=== PATIENT | female | born 1955 | race Caucasian/White ===

== ENCOUNTER → 2018-10-30 08:50 | Outpatient (CLI) | payer BC, SELFPAY ==
--- NOTE | 2018-10-30 08:56 | MM_ITS ---
MM Dig screening mamm BI w/CAD CAD Screening COMPARISON: Digital mammograms with CAD 01/19/2016 and 12/03/2013 INDICATION: There is no personal or family history of breast cancer TECHNIQUE: Standard CC and MLO images were obtained. R2 CAD reviewed. FINDINGS: Mild diffuse fibroglandular densities are seen throughout both breasts. There is faint vascular calcification left breast, there are couple benign-appearing microcalcifications right breast. There is no suspicious lesion in either breast and there are no suspicious microcalcifications. IMPRESSION: Fibrofatty parenchyma with no suspicious lesion seen BI-RADS Category: 2 Benign Finding(s) RECOMMENDED FOLLOW-UP: 1YR - 1 YEAR FOLLOW-UP (A letter has been sent to the patient regarding results of the study.)
== END ==
PROVIDERS: PCP Nurse Practitioner Family; Visit Provider Nurse Practitioner Family
DX: Z12.31 Encounter for screening mammogram for malignant neoplasm of breast (principal)
CPT/HCPCS: 77067

== ENCOUNTER → 2020-04-12 08:42 | Outpatient (CLI) | payer BC, SELFPAY ==
--- NOTE | 2020-04-12 08:42 | MM_ITS ---
PROCEDURE: MM DIG SCREENING MAMM BI W/CAD Digital Breast Tomosynthesis Included CLINICAL INDICATION: screening xmg There is no personal or family history of breast cancer. COMPARISON: MG DMSB DIG MAMM-SCREEN SEBAS from 12/03/2013 MG DMSB DIG MAMM-SCREEN SEBAS from 01/19/2016 MG SCBI MM Dig screening mamm BI w/CAD from 10/30/2018 TECHNIQUE: Standard CC and MLO images and 3D Tomosynthesis was obtained. R2 CAD reviewed. FINDINGS: [id number] fibroglandular densities are seen throughout both breasts. There is faint arterial calcification in each breast. There is stable asymmetric glandular elements upper-outer quadrant right breast. There is no suspicious lesion in either breast and no suspicious microcalcifications. IMPRESSION: Fibrofatty parenchyma with no suspicious lesions seen BI-RAD Category: 2 Benign Finding(s) FOLLOW-UP: 1YR 1 Year Follow-up (A letter has been sent to the patient regarding results of the study.) Dictated by: Dr. Angel Corbin MD 04/13/2020 10:58 Dr. Angel Corbin MD in [place] 04/13/2020 10:58
== END ==
PROVIDERS: PCP Nurse Practitioner Family; Visit Provider Nurse Practitioner Obstetrics & Gynecology
DX: Z12.31 Encounter for screening mammogram for malignant neoplasm of breast (principal)
CPT/HCPCS: 77063; 77067

== ENCOUNTER → 2021-04-16 10:38 | Outpatient (CLI) | payer BC, SELFPAY ==
--- NOTE | 2021-04-16 10:41 | MM_ITS ---
PROCEDURE: MM DIG SCREENING MAMM BI W/CAD Digital Breast Tomosynthesis Included CLINICAL INDICATION: SCREENING COMPARISON: MG DMSB DIG MAMM-SCREEN SEBAS from 01/19/2016 MG SCBI MM Dig screening mamm BI w/CAD from 10/30/2018 MG MM DIG SCREENING MAMM BI W/CAD from 04/12/2020 TECHNIQUE: Standard CC and MLO images and 3D Tomosynthesis was obtained. R2 CAD reviewed. FINDINGS: Average fibroglandular tissue. No malignant appearing mass or malignant-appearing microcalcification. There are bilateral benign-appearing calcifications.No suspicious appearing mass, malignant-appearing microcalcification, architectural distortion, or skin thickening. No change with no evidence of malignancy IMPRESSION: Benign findings. No change with no evidence of malignancy. BI-RAD Category: 2 Benign Finding FOLLOW-UP: 1 YR 1 Year Follow-up (A letter has been sent to the patient regarding results of the study.) Dictated by: Bryce Meléndez MD 04/20/2021 09:41 Bryce Meléndez MD in [place] 04/20/2021 09:41
== END ==
PROVIDERS: PCP Nurse Practitioner Family; Visit Provider Nurse Practitioner Family
DX: Z12.31 Encounter for screening mammogram for malignant neoplasm of breast (principal)
CPT/HCPCS: 77063; 77067

== ENCOUNTER → 2021-07-10 09:41 | Outpatient (CLI) | payer BC, SELFPAY | PROVIDERS: Visit Provider Surgery | DX: Z01.812 Encounter for preprocedural laboratory examination (principal); Z11.52 Encounter for screening for COVID-19; Z12.11 Encounter for screening for malignant neoplasm of colon | CPT/HCPCS: C9803; U0003; U0005 ==

== ENCOUNTER 2021-07-12 06:16 | Day surgery (SDC) | payer BC, SELFPAY ==
[2021-07-09 11:27] VITALS: BMI 36.0
[2021-07-12 06:30] VITALS: BP 140/85; PULSE 68; RESP 18; TEMP 36.2; O2SAT 98
[2021-07-12 07:22] VITALS: O2SAT 97
[2021-07-12 08:20] VITALS: BP 113/76; PULSE 79; RESP 16; TEMP 36.1; O2SAT 94
--- NOTE | 2021-07-12 08:20 | HMH.SCOPE ---
- Procedure: Date: 07/12/21 Patient Date of :: 1955 Procedure Performed:: Colonoscopy with polypectomy Indications:: History of colon polyps Performing Provider:: Sonny Rodriguez MD Referring Provider:: . Sedation:: Monitored anesthesia care Procedure:: After informed consent was obtained the patient was taken to the endoscopy suite. Sedation ensued after the patient was transferred to the left lateral decubitus position. Pulse, blood pressure, and oxygen saturation were monitored throughout the procedure. Digital rectal exam revealed no significant abnormality. The colonoscope was placed in position. The entire colon was evaluated. The colonoscope was carefully removed and the patient was transferred to recovery in stable condition. Please see findings and specimens below for detail. Findings:: Bowel preparation fair Severe spasticity lack of relaxation (worse in sigmoid) Multiple complex polyps (see specimens) Specimens:: Distal transverse colon polyp (snare) Complex lobulated 2 cm polyp at 55 cm and 3 adjacent polyps (snare and tattoo) 4 polyps at 45 cm Pedunculated complex polyp at 20 cm (snare) Recommendations:: Timing of repeat colonoscopy is pending pathology but likely be between 3-6 months secondary to size/nature/number of polyps with particular attention to tattoo site. Complications:: No immediate Estimated blood obtained (mL): 1
[2021-07-12 08:30] VITALS: BP 109/69; PULSE 73; RESP 18; TEMP 36.1; O2SAT 98
[2021-07-12 08:40] VITALS: BP 115/75; PULSE 58; RESP 18; TEMP 36.1; O2SAT 99
--- NOTE | 2021-07-12 08:54 | HMH.ANESCL ---
[facility] Anesthesia Checklist - Structural Data Admitted From: Home Planned Operative Procedure/s: colonoscopy Consent for Planned Operative Procedure(s) Verified: Yes - Airway Assessment C-Spine Mobility Assessed: Yes TMJ Mobility Assessed: Yes Dentition: Edentulous - Neurological Assessment Level of Consciousness: Awake, Alert, Appropriate - Anesthesia Plan Anesthesia Risk discussed: Yes Anesthesia Plan: Verified ASA Class: III Anesthesia Type: MAC [facility] History I have reviewed the patient's past medical history: Yes Medical History: Reports:: Diabetes Mellitus Type 2, Hypertension Denies:: Cancer, Diabetes Mellitus Type 1, Internal Pacemaker, MRSA, Seizures *Have you ever received a pneumonia vaccine?: No *Have you received a flu vaccine this season?: Yes Anesthesia experience/problems:: none Laterality Cases: Right: Cataract, Bilateral: Total Knee Replacement Other Surgeries: Yes: Tubal Ligation. No: Pacemaker Amputation: No Fractures: No - *Social History Last grade of school completed: High school graduate Smoking Status: Never smoker Alcohol Intake: never Substance Use Type: denies use *Occupational Status:: employed Housing: house Household Members: spouse *Travel in the last 8 weeks: None Family Hx:: Cancer, Diabetes, Hypertension, Hyperlipidemia, Asthma
[2021-07-12 08:59] VITALS: BP 129/79; PULSE 64; RESP 18; TEMP 36.1; O2SAT 99
[2022-05-23 10:54] LABS: POC Glucose,Bedside 125 (70-110)
== END 2021-07-12 08:59 | disposition home or self-care (01) ==
LOC: OUTP 06:17
PROVIDERS: PCP Nurse Practitioner Family; Visit Provider Surgery
PROC: 0DJD8ZZ Inspection of Lower Intestinal Tract, Via Natural or Artificial Opening Endoscopic (ICD-10-PCS; CPT 45385; principal; 2021-07-12 07:30)
DX: Z12.11 Encounter for screening for malignant neoplasm of colon (principal); Z86.010 Personal history of colon polyps; E66.9 Obesity, unspecified; Z68.35 Body mass index [BMI] 35.0-35.9, adult; E11.9 Type 2 diabetes mellitus without complications; I10 Essential (primary) hypertension; Z88.2 Allergy status to sulfonamides; K62.89 Other specified diseases of anus and rectum; K63.5 Polyp of colon
CPT/HCPCS: 45385; 45381; 82962

== ENCOUNTER → 2021-09-21 10:21 | Outpatient (CLI) | payer MEDICARE, SELFPAY ==
[2021-09-22 15:06] LABS: Covid-19 Nasal PCR Sendout Lex POSITIVE
== END ==
PROVIDERS: Visit Provider Nurse Practitioner
DX: U07.1 COVID-19 (principal)
CPT/HCPCS: C9803; U0004; U0005

== ENCOUNTER → 2021-10-06 09:51 | Outpatient (CLI) | payer MEDICARE, SELFPAY | PROVIDERS: PCP Nurse Practitioner Family; Visit Provider Surgery | DX: Z01.812 Encounter for preprocedural laboratory examination (principal); U07.1 COVID-19; D12.6 Benign neoplasm of colon, unspecified | CPT/HCPCS: C9803; U0003; U0005 ==

== ENCOUNTER 2021-11-13 11:17 | Day surgery (SDC) | payer MEDICARE, SELFPAY ==
[2021-10-05 13:47] VITALS: BMI 37.8
[2021-11-12 10:55] VITALS: BMI 37.8
[2021-11-13 11:32] VITALS: BP 152/68; PULSE 63; RESP 18; TEMP 36.3; O2SAT 97
[2021-11-13 12:11] VITALS: O2SAT 97
[2021-11-13 12:46] VITALS: BP 114/68; PULSE 65; RESP 16; TEMP 36.3; O2SAT 96
--- NOTE | 2021-11-13 12:46 | HMH.SCOPE ---
- Procedure: Date: 11/13/21 Patient Date of :: 1955 Procedure Performed:: Colonoscopy with polypectomy by means other than snare Indications:: History of large complex polyps to include transverse colon polyp requiring piecemeal resection with tattoo placement. Performing Provider:: Sonny Rodriguez MD Referring Provider:: . Sedation:: Monitored anesthesia care Procedure:: After informed consent was obtained the patient was taken to the endoscopy suite. Sedation ensued after the patient was transferred to the left lateral decubitus position. Pulse, blood pressure, and oxygen saturation were monitored throughout the procedure. Digital rectal exam revealed no significant abnormality. The colonoscope was placed in position. The entire colon was evaluated. The colonoscope was carefully removed and the patient was transferred to recovery in stable condition. Please see findings and specimens below for detail. Findings:: Bowel preparation relatively fair Unchanged sigmoid diverticulosis Tattoo site appeared essentially normal Small polyp approximately 10 cm distal to tattoo site (transverse colon) Specimens:: Polyp distal to tattoo site (transverse colon) -cold biopsy forceps Recommendations:: Timing of repeat colonoscopy is pending pathology but will likely be around 2-3 years secondary to history of large complex polyps and persistent polyps on subsequent evaluation. Complications:: No immediate Estimated blood obtained (mL): 1
--- NOTE | 2021-11-13 12:47 | HMH.ANESCL ---
[facility] Anesthesia Checklist - Structural Data Admitted From: Home Planned Operative Procedure/s: colonoscopy Consent for Planned Operative Procedure(s) Verified: Yes - Airway Assessment C-Spine Mobility Assessed: Yes TMJ Mobility Assessed: Yes Dentition: Good Dentition - Neurological Assessment Level of Consciousness: Awake, Alert, Appropriate - Anesthesia Plan Anesthesia Risk discussed: Yes Anesthesia Plan: Verified ASA Class: II Anesthesia Type: MAC [facility] History I have reviewed the patient's past medical history: Yes Medical History: Reports:: Diabetes Mellitus Type 2, Hypertension Denies:: Cancer, Diabetes Mellitus Type 1, Internal Pacemaker, MRSA, Seizures *Have you ever received a pneumonia vaccine?: No *Have you received a flu vaccine this season?: Yes Anesthesia experience/problems:: none Laterality Cases: Bilateral: Carpal Tunnel Release, Total Knee Replacement Other Surgeries: Yes: Colonoscopy, Tubal Ligation. No: Pacemaker Amputation: No Fractures: No - *Social History Last grade of school completed: High school graduate Smoking Status: Never smoker Alcohol Intake: never Substance Use Type: denies use *Occupational Status:: retired Housing: house Household Members: spouse *Travel in the last 8 weeks: None Family Hx:: Diabetes, Kidney Disease
[2021-11-13 12:56] VITALS: BP 106/69; PULSE 54; RESP 18; O2SAT 97
[2021-11-13 13:10] VITALS: BP 124/76; PULSE 53; RESP 16; TEMP 36.3; O2SAT 98
[2022-05-23 10:58] LABS: POC Glucose,Bedside 82 (70-110)
== END 2021-11-13 13:10 | disposition home or self-care (01) ==
LOC: OUTP 11:18
PROVIDERS: PCP Nurse Practitioner Family; Visit Provider Surgery
PROC: 0DJD8ZZ Inspection of Lower Intestinal Tract, Via Natural or Artificial Opening Endoscopic (ICD-10-PCS; principal; 2021-11-13 12:30)
DX: Z12.11 Encounter for screening for malignant neoplasm of colon (principal); Z86.010 Personal history of colon polyps; K57.32 Diverticulitis of large intestine without perforation or abscess without bleeding; K63.5 Polyp of colon; E11.9 Type 2 diabetes mellitus without complications; I10 Essential (primary) hypertension; Z83.3 Family history of diabetes mellitus; Z84.2 Family history of other diseases of the genitourinary system; Z88.2 Allergy status to sulfonamides; Z79.84 Long term (current) use of oral hypoglycemic drugs; Z79.899 Other long term (current) drug therapy
CPT/HCPCS: 45380; 82962; 88305

== ENCOUNTER → 2022-10-03 10:45 | Outpatient (CLI) | payer MEDICARE, SELFPAY ==
--- NOTE | 2022-10-03 10:56 | XR_ITS ---
FINAL REPORT CLINICAL HISTORY: thumb pain FINDINGS: RIGHT THUMB 3 views of the right 1st digit were obtained. There is no acute fracture or dislocation. There are mild hypertrophic changes at the interphalangeal joint. There is mild soft tissue swelling. IMPRESSION: Soft tissue swelling with no acute bony abnormality. Mild hypertrophic changes at the interphalangeal joint. Reviewed, Interpreted and Dictated by Jamar Peters MD Transcribed by Denise Ren Authenticated and [facility]
== END ==
PROVIDERS: PCP Nurse Practitioner Family; Visit Provider Nurse Practitioner Family
DX: M79.644 Pain in right finger(s) (principal); M79.89 Other specified soft tissue disorders
CPT/HCPCS: 73140

== ENCOUNTER → 2022-11-08 10:04 | Outpatient (CLI) | payer MEDICARE, SELFPAY ==
--- NOTE | 2022-11-08 10:10 | MM_ITS ---
PROCEDURE INFORMATION: Exam: MG Bilateral Screening 3D Mammography Exam date and time: 11/08/2022 10:17 AM Age: 67 years old Clinical indication: Screening examination TECHNIQUE: Imaging protocol: Bilateral Screening tomosynthesis and 2D mammography including computer-aided detection (CAD) when performed. COMPARISON: 1. MG MM DIG SCREENING MAMM BI W/CAD 04/16/2021 11:06 AM 2. MG MM DIG SCREENING MAMM BI W/CAD 04/12/2020 8:43 AM FINDINGS: MAMMOGRAPHY: Breast composition: There are scattered areas of fibroglandular density. Mass: None. Architectural distortion: None. Calcifications: No suspicious calcifications. Asymmetric density: None. Skin thickening: None. Axillary adenopathy: None. IMPRESSION: No mammographic evidence of malignancy. Annual screening is recommended unless otherwise clinically indicated. ASSESSMENT: BI-RADS Category 1: Negative
== END ==
PROVIDERS: PCP Nurse Practitioner Family; Visit Provider Nurse Practitioner Family
DX: Z12.31 Encounter for screening mammogram for malignant neoplasm of breast (principal)
CPT/HCPCS: 77063; 77067

== ENCOUNTER 2023-03-15 05:35 | Emergency (ER) | payer MEDICARE, SELFPAY ==
[2023-03-15 05:36] VITALS: BP 159/81; PULSE 89; RESP 18; TEMP 36.9; O2SAT 98; BMI 33.5
--- NOTE | 2023-03-15 05:53 | HMH.EDGENADL ---
Discharge Plan Disposition Patient Disposition: Home, Self-Care Condition: Good Prescriptions Prescriptions: New dexamethasone 6 mg tablet 6 mg PO DAILY Qty: 5 0RF ondansetron HCl 4 mg tablet 4 mg PO Q6H PRN (Reason: nausea and vomiting) Qty: 10 0RF No Action metformin 500 mg tablet extended release 24 hr 500 mg PO DAILY Qty: 30 metoprolol succinate [Toprol XL] 50 mg tablet extended release 24 hr 50 mg PO DAILY clobetasol 0.05 % foam 1 g TOPICAL NEEDED PRN (Reason: psoriasis) triamcinolone acetonide 0.1 % cream 1 applic TOPICAL BID terconazole 45 GM cream 1 appful VAGINAL HS fluconazole 150 MG tablet 150 mg PO DAILY Referrals Follow up/Referrals: Suyapa Gracia APRN [Primary Care Provider] - See instructions Activity Restrictions/Add. Instructions Additional Instructions/Restrictions: Take Tylenol 1000 mg every 6 hours (4 times daily) and ibuprofen 400 mg every 6 hours (4 times daily) as needed with food and water to prevent GI upset and kidney damage. [id number] cetirizine or fexofenadine (Zyrtec or Claritin) will help with congestion. Avoid using decongestants like Sudafed every day as discussed. Steroid once daily for 5 days. Zofran has been sent to the pharmacy for nausea control. If you have any worsening of your condition or any other concerning signs or symptoms, return to the emergency department or your primary care doctor for further evaluation. Clinical Impressions Clinical Impression: COVID-19, Gastroenteritis, Acute viral syndrome Instructions Patient Instructions: DI for Diarrhea and Traveler's Diarrhea -- Adult, DI for Diarrhea and Traveler's Diarrhea -- Child, DI for Nausea -- Adult, DI for Nausea -- Child Discharge ED Provider: Christo Lao General Adult HPI General Chief complaint: Nausea/Vomiting/Diarrhea Stated complaint: SOA, vomiting, positive home covid test Time Seen by Provider: 03/15/23 05:35 Mode of Arrival: Ambulatory Source of Information: Patient Limitations: No Limitations Description of Symptoms (Recalled from ER Triage Doc. by RN): Pt states she was at her mother's last Friday and exposed to COVID. Pt has been vaccinated c/o fever, chills, vomiting, and nausea. History of Present Illness HPI narrative: This is a 67-year-old female with history of hypertension and diabetes presenting with multiple complaints. Patient states she was at a 1 week prior to arrival when she had multiple COVID exposures. She started feeling ill the past couple days, including chills, myalgias, then today, 03/15 in the early a.m. she had 1 episode of nonbloody, nonbilious vomiting. Has also had associated nonbloody diarrhea. Has not tried to tolerate p.o. intake since, given decreased appetite. Denies overt fever, abdominal pain, flank pain, dysuria hematuria, or any other concerns. Tried taking Sudafed, which did not seem to help. Has not noticed anything that makes it better or worse in particular. Related Data Home Medications Medication Instructions Recorded Confirmed metformin 500 mg tablet,extended 500 mg PO DAILY Diabetes #30 tabs 12/11/18 11/12/21 release 24 hr metoprolol succinate 50 mg 50 mg PO DAILY HTN 12/11/18 11/12/21 tablet,extended release 24 hr (Toprol XL) clobetasol 0.05 % topical foam 1 g topical NEEDED PRN psoriasis 05/21/21 11/12/21 triamcinolone acetonide 0.1 % 1 applic topical BID yeast 05/21/21 11/12/21 topical cream fluconazole 150 mg tablet 150 mg PO DAILY yeast 07/09/21 11/12/21 terconazole 0.4 % vaginal cream 1 appful vaginal HS yeast 07/09/21 11/12/21 Previous Rx's Medication Instructions Recorded dexamethasone 6 mg tablet 6 mg PO DAILY #5 tabs 03/15/23 ondansetron HCl 4 mg tablet 4 mg PO Q6H PRN nausea and 03/15/23 vomiting #10 tabs Allergies Allergy/AdvReac Type Severity Reaction Status Date / Time Sulfa (Sulfonamide Allergy Itching Verified 11/12/21 10:55 Anti
[2023-03-15 05:57] LABS: Influenza A, PCR Not Detected (NotDetected); Influenza B, PCR Not Detected (NotDetected)
[2023-03-15 06:18] LABS: Coronavirus 19, PCR Detected (NotDetected)
[2023-03-15 06:41] VITALS: BP 127/68; PULSE 88; RESP 18; TEMP 36.9; O2SAT 98
== END 2023-03-15 06:53 | disposition home or self-care (01) ==
PROVIDERS: Emergency Provider Emergency Medicine; PCP Nurse Practitioner Family
DX: K52.9 Noninfective gastroenteritis and colitis, unspecified (principal); U07.1 COVID-19; I10 Essential (primary) hypertension
CPT/HCPCS: 87636; 99283

== ENCOUNTER 2023-08-29 16:54 | Outpatient (CLI) | payer MEDICARE, SELFPAY ==
[2023-08-29 15:36] LABS: Hemoglobin A1C 6.6 % (4.0-6.0)
[2023-08-29 15:38] LABS: Chloride 102 mmol/L (98-107)
[2023-08-29 15:39] LABS: Sodium 138 mmol/L (136-145)
[2023-08-29 15:41] LABS: Alanine Aminotransferase 22 U/L (12-78); Aspartate Amino Transferase 31 U/L (14-36); Blood Urea Nitrogen 22 mg/dl (7-17); Estimated Glomerular Filt Rate 72 ml/min (>60); GFR (African American) 87 ML/MIN (>60)
[2023-08-29 15:42] LABS: Albumin Level 4.2 g/dl (3.5-5.0); Albumin/Globulin Ratio 1.4 (1.1-1.8); Alkaline Phosphatase 111 U/L (38-126); Bilirubin,Total 0.4 mg/dl (0.2-1.3); Calcium 8.9 mg/dl (8.4-10.2); Carbon Dioxide 30 mmol/L (22.0-30.0); Chol/HDL Ratio 4.2 (1-3.5); Cholesterol 207 mg/dl (140-200); Glucose 109 mg/dl (74-100); HDL Cholesterol 49 mg/dl (40-60); Total Protein,Serum 7.2 g/dl (6.3-8.2); Triglycerides 114 mg/dl (30-150); VLDL Cholesterol 23 mg/dL (0-40)
[2023-08-29 15:53] LABS: Direct LDL Cholesterol 123.52 mg/dL (100-129)
[2023-08-29 16:09] LABS: Microalbumin < 6.000 mg/L (0-16.7)
[2023-08-29 16:13] LABS: Thyroid Stimulating Hormone 2.32 uIU/mL (0.465-4.68)
--- OUTSIDE RECORDS SUMMARY | 2023-08-29 16:57 | XMS_ITS ---
Care Plan - [facility] Created on: August 29, 2023 MichaelKassi rey Eric : 1955 Sex: Female Author Name Unknown Address [address] [place] [address] Phone Organization [facility] Address [address] [place] [address] Phone Care Team Providers Care [employer] Record Clerk Name Role Phone Emerita Gracia Unavailable Unavailable Winston TURNER, Tremaine Unavailable [phone]
--- OUTSIDE RECORDS SUMMARY | 2023-08-29 16:57 | XMS_ITS | Clinical Summary ---
Author Name Unknown Address [address] [place] [address] Phone Organization [facility] , [facility] Address [address] [place] [address] Phone Care Team Providers Care Instructor Programmable Controllers Name Role Phone Emerita Gracia Unavailable Unavailable Winston TURNER, Tremaine Unavailable [phone] Reason for Visit and Chief Complaint The Chief Complaint is: Right swollen thumb Problems Includes: Problems addressed during this encounter and other active Problems All Visits Onset Date Resolved Date Provider Condition S tatus Joint Pain Right Thumb 11/18/2022 Tremaine Montero MD Active Plan of Treatment Fall Risk Assessment: This patient has been identified as a fall risk. Balance/gait along with postural blood pressure, vision and home fall hazards have been assessed. Medications have been reviewed, and recommendations made with regard to contributing factors for future falls. Plan of care: Consideration of vitamin D supplementation along with balance and strength training with consideration for formal physical therapy has been discussed with the patient. - Last Documented On 12/13/2022 9:19AM ; [facility], [facility] Kassi has done very well status post right thumb mass excision 11/29/2022. Sutures were removed today and her incision is healing well. She has full motion of the thumb with no significant pain. I explained that she can use the thumb as tolerated with no activity restriction. We discussed pathology findings consistent with lipoma and I explained that lipoma's can return. She will follow up on an as needed basis. - Last Documented On 12/13/2022 9:19AM ; [facility], [facility] Instructions to patient Lose weight Last Documented On 10:02AM ; [facility] Assessments Includes: Assessments from this encounter No Assessments Recorded Instructions Includes: Instructions from this encounter Instructions to patient Lose weight Last Documented On 10:02AM ; [facility] Medical Equipment - Implanted Devices Includes: Current Devices No Medical Equipment Recorded Medications Includes: Medications discussed during this encounter and other current Medications Current Medications (continue as prescribed) metFORMIN HCl ER 500 MG Oral Tablet Extended Release 24 Hour 11/15/2022 Provider: NETTE GRACIA Diagnosis: Metoprolol Succinate ER 50 M G Oral Tablet Extended Release 24 Hour 11/15/2022 Provider: NETTE GRACIA Diagnosis: Triamcinolone Acetonide 0.1% External Cream 10/21/2022 Provider: NETTE GRACIA Diagnosis: Fluconazole 150 MG Oral Tablet 10/15/2022 Provider: NETTE GRACIA Diagnosis: Amitriptyline HCl 10 MG Oral Tablet 10/03/2022 Provi germaine: NETTE GRACIA Diagnosis: Past Medications on file HYDROcodone-Acetaminophen 5- 325 MG Oral Tablet 11/29/2022 - 12/01/2022 Provider: Tremaine Montero MD Diagnosis: 1 tablet by mouth every 6 hours prn pain Medications Administered Includes: Administered Medications from this encounter No Administered Medications Recorded Vital Signs Includes: Vital Signs from this encounter Vital Name 12/11/2022 10:10A Height (in) 64 Weight (lb) 198 Body Mass Index 34 Body Surface Area 1.9 Note: bb Last Documented On: 12/11/2022 10:10AM ; [facility], [facility] Results Includes: Results discussed during this encounter No Results Recorded For Specified Dates History of Present Illness Includes: History of Present Illness from this encounter JEVON Rodriguez is a 67 year old female. - Allergy list reviewed - Problem list reviewed - Medication list reviewed - Previous history of new onset pain Injury is not work related or an automotive accident - Patient pain level from 1-10: was 0 3 - No previous treatment. 67-year-old female presents for an initial postoperative follow up of right thumb mass excision performed on 11/29/2022. She reports mild tenderness that continues to improve. She has returned to normal daily activities without difficulty. Social History Description Last Updated Tobacco non-user 11/18/2022 Procedures and Surgical History Includes: Procedures from this encounter Procedures Code Diagnosis Performing Provider Service L ocation Service Date use of tobacco assessment performed 1000F Surgical History Last Updated History of total knee arthroplasty 12/11 Medical History Includes: Medical History addressed during this encounter Description Last Updated History of arthritis 12/11/2022 Family History Includes: Family History addressed during this encounter Description Last Updated No significant family history 11/18/2022 Review of Systems Includes: Review of Systems from this encounter Systemic: Not feeling tired, no recent weight loss, and no recent weight gain. Head: No headache and no sinus pain. Eyes: No vision problems, no Cataracts, no Glasses/Contacts, and no Glaucoma. Otolaryngeal: No hearing loss and no tinnitus. Cardiovascular: No chest pain or discomfort, no palpitations, no Hypertension, and no High Cholesterol. Pulmonary: No daytime asthma symptoms and no chronic cough. No wheezing. Gastrointestinal: No heartburn and no abdominal pain. No Indigestion, no Acid Reflux, no Peptic Ulcer, no GI Stomach Bleed, and no Ulcers. Endocrine: No hot flashes, no muscle weakness, no Diabetes, no Hypothyroid, and no Hyperthyroid. Hematologic: No easy bleeding, no tendency for easy bruising, and no Anemia. Musculoskeletal: No Arthritis and no lower back pain. No soft tissue swelling and no localized joint pain. Neurological: No dizziness, no convulsions, and no numbness. Psychological: No anxiety, no emotional lability, no depression, and no insomnia. Not crying for no reason. Skin: No dry skin. No Ulcers, no Scars, and no rash. Allergic and Immunologic: No complaint of seasonal allergic reaction. Reviewed on 12-11-2022 Mental Status Includes: Mental Status from this encounter Description No anxiety Functional Status Includes: Functional Status from this encounter No Functional Status Recorded Physical Exam Includes: Physical Exam from this encounter Allergies Includes: Active Allergies No Known Allergies Encounters Encounter Provider Location Date Check-In Time Check- Out Time Diagnosis Post Op Tremaine Montero MD [facility] 3 10:00AM 10:31AM Insurance Includes: Active Insurance Policies Plan Name Member ID Group # Subscriber Relationship Effect jg Dates 1 - Medicare Part B [facility] [id number] KassiFrank Rodriguez Self 2 - [employer] [facility] [employer] [id number] Kassi Rodriguez Self 08/25/19 23 - Unknown Clinical Notes Includes: Clinical Notes from this encounter * Progress note Date Encounter Last Documented by 12/11/2022 Post Op Last documented on 12/13/2022; 9:19 AM, Tremaine Montero MD; [facility], [facility] Active Problems & Conditions - Joint Pain Right Thumb Chief Complaint The Chief Complaint is: Right swollen thumb. Referred Here Referred by. History of Present Illness Kassi Rodriguez is a 67 year old female. - Allergy list reviewed - Problem list reviewed - Medication list reviewed - Previous history of new onset pain Injury is not work related or an automotive accident - Patient pain level from 1-10: was 0 3 - No previous treatment. 67-year-old female presents for an initial postoperative follow up of right thumb mass excision performed on 11/29/2022. She reports mild tenderness that continues to improve. She has returned to normal daily activities without difficulty. Current Medication - Amitriptyline HCl 10 MG Oral Tablet take as directed 30 days, 0 refills - Fluconazole 150 MG Oral Tablet take as directed 5 days, 0 refills - metFORMIN HCl ER 500 MG Oral Tablet Extended Release 24 Hour take as directed 30 days, 0 refills - Metoprolol Succinate ER 50 MG Oral Tablet Extended Release 24 Hour take as directed 30 days, 0 refills - Triamcinolone Acetonide 0.1% External Cream take as directed 10 days, 0 refills Past Medical/Surgical History Diagnoses: Hypertension. Diabetes mellitus. Arthritis Surgical: - Total knee arthroplasty Social History Not a current smoker. Current diet: No recent change in diet. Caffeine use: No caffeine use. Tobacco use: Tobacco non-user. Alcohol: Not using alcohol. Drug Use: Not using drugs. Habits: Not exercising regularly. Allergies - No Known Allergies Family History No significant family history Review Of Systems Systemic: Not feeling tired, no recent weight loss, and no recent weight gain. Head: No headache and no sinus pain. Eyes: No vision problems, no Cataracts, no Glasses/Contacts, and no Glaucoma. Otolaryngeal: No hearing loss and no tinnitus. Cardiovascular: No chest pain or discomfort, no palpitations, no Hypertension, and no High Cholesterol. Pulmonary: No daytime asthma symptoms and no chronic cough. No wheezing. Gastrointestinal: No heartburn and no abdominal pain. No Indigestion, no Acid Reflux, no Peptic Ulcer, no GI Stomach Bleed, and no Ulcers. Endocrine: No hot flashes, no muscle weakness, no Diabetes, no Hypothyroid, and no Hyperthyroid. Hematologic: No easy bleeding, no tendency for easy bruising, and no Anemia. Musculoskeletal: No Arthritis and no lower back pain. No soft tissue swelling and no localized joint pain. Neurological: No dizziness, no convulsions, and no numbness. Psychological: No anxiety, no emotional lability, no depression, and no insomnia. Not crying for no reason. Skin: No dry skin. No Ulcers, no Scars, and no rash. Allergic and Immunologic: No complaint of seasonal allergic reaction. Reviewed on 12-11-2022 Physical Findings - Vitals taken 12/11/2022 10:10 am bb Height 64 in Weight 198 lbs Body Mass Index 34 kg/m2 Body Surface Area 1.9 m2 Standard Measurements: - Patient was overweight. RIGHT WRIST/HAND: Well healed incision with no sign of infection Able to oppose to the base of the small finger Mild tenderness Sensation intact to light touch distally Previous Tests Imaging: X-Ray: An X-ray was performed. Counseling/Education - Lose weight Plan Fall Risk Assessment: This patient has been identified as a fall risk. Balance/gait along with postural blood pressure, vision and home fall hazards have been assessed. Medications have been reviewed, and recommendations made with regard to contributing factors for future falls. Plan of care: Consideration of vitamin D supplementation along with balance and strength training with consideration for formal physical therapy has been discussed with the patient. Kassi has done very well status post right thumb mass excision 11/29/2022. Sutures were removed today and her incision is healing well. She has full motion of the thumb with no significant pain. I explained that she can use the thumb as tolerated with no activity restriction. We discussed pathology findings consistent with lipoma and I explained that lipoma's can return. She will follow up on an as needed basis. Notes Transcribed by Gregg Quevedo, acting as a scribe for Dr. Montero. This dictation was done with voice recognition software and may contain errors and omissions. Practice Management Use of tobacco assessment performed and patient screened for future fall risk documentation of any fall with injury in past year. Care Team - Emerita Gracia
--- OUTSIDE RECORDS SUMMARY | 2023-08-29 16:57 | XMS_ITS | Clinical Summary ---
Author Name Unknown Address [address] [place] [address] Phone Organization [facility] , [facility] Address [address] [place] [address] Phone Care Team Providers Care Production Machine Tender Name Role Phone Emerita Gracia Unavailable Unavailable Winston TURNER, Tremaine Unavailable [phone] Reason for Visit and Chief Complaint The Chief Complaint is: Right swollen thumb Problems Includes: Problems addressed during this encounter and other active Problems Current Visit Onset Date Resolved Date Provider Manolo kitchen Status Joint Pain Right Thumb 11/18/2022 Tremaine Montero [...] with the patient. - Last Documented On 11/18/2022 4:15PM ; [facility] Kassi has a 3 month old mass at the proximal phalanx of her right thumb. 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 We discussed the risks and benefits of observation vs. operative intervention (excision). She opted to proceed with a mass excision, all of her questions and concerns were addressed. She will return for follow up postoperatively. Surgical vs. nonsurgical treatment options were discussed with the patient. The risks and benefits of each were discussed in detail. With regard to surgery the major risks, to include but not limited to bleeding, infection, nerve and blood vessel injury, tendon injury, residual pain, numbness, stiffness, blood clots and risks related to anesthesia including were discussed. The patient understands the risk of surgery to include but are not limited to infection, possible nerve damage, tendon or vessel injury, scar sensitivity and anesthesia. The patient understands the need for postoperative rehabilitation and therapy. We discussed the possibility of surgical procedure failure, persistent pain, loss of motion, persistent stiffness, persistent weakness, and the possible need for a revision surgery. The patient's questions were answered fully, no guarantees were provided. At the completion of this conversation, the patient elected to proceed with surgery. They will be scheduled at their earliest convenience. - Last Documented On 11/18/2022 4:15PM ; [facility], [facility] Instructions to patient Lose weight Last Documented On 9:26AM ; [facility], [facility] Assessments Includes: Assessments from this encounter No Assessments Recorded Instructions Includes: Instructions from this encounter Instructions to patient Lose weight Last Documented On 9:26AM ; [facility], [facility] Medical Equipment - Implanted Devices Includes: Current [...] Vital Signs from this encounter Vital Name 11/18/2022 09:32A Height (in) 64 Weight (lb) 195 Body Mass Index 33.5 Body Surface Area 1.9 Note: bb Last Documented On: 11/18/2022 9:32AM ; [facility], [facility] Results Includes: Results discussed during this encounter [...] Patient pain level from 1-10: was 0 0 - No previous treatment. 67-year-old female presents for an initial evaluation of a mass over the proximal phalanx of her right thumb that began about 3 months ago. She denies any trauma to the finger. She has not received any formal treatment for this but x-rays were obtained by her PCP about 1 month ago. She reports that the mass is uncomfortable when it is pressed or when using scissors. Social History Description Last Updated Tobacco non-user 11/18/2022 Procedures and Surgical History Includes: Procedures from this encounter Procedures Code Diagnosis Performing Provider Service L ocation Service Date use of tobacco assessment performed 1000F Medical History Includes: Medical History addressed during this encounter No Medical History Recorded Family History Includes: Family History addressed during [...] complaint of seasonal allergic reaction. Reviewed on 11-18-2022 Mental Status Includes: Mental Status from this encounter Description No anxiety Functional Status Includes: Functional Status from this encounter No Functional Status Recorded Physical Exam Includes: Physical Exam from this encounter Allergies Includes: Active Allergies No Known Allergies Encounters Encounter Provider Location Date Check-In Time Check-Out Time Diagnosis Physician Specified Tremaine Montero MD [facility] 11/19/19 9:24AM 10:52AM Insurance Includes: Active Insurance Policies Plan Name Member ID Group # Subscriber Relationship Effect jg Dates 1 - Medicare Part B [facility] [id number] Kassi Rodriguez Self 2 - [facility] [employer] [id number] Kassi Rodriguez Self 08/25/19 23 - Unknown Clinical Notes Includes: Clinical Notes from this encounter * Progress note Date Encounter Last Documented by 11/18/2022 Physician Specified Last pepito salgado on 11/18/2022; 4:15 PM, Tremaine Montero MD; [facility], [facility] Active Problems & Conditions - Joint Pain [...] Patient pain level from 1-10: was 0 0 - No previous treatment. 67-year-old female presents for an initial evaluation of a mass over the proximal phalanx of her right thumb that began about 3 months ago. She denies any trauma to the finger. She has not received any formal treatment for this but x-rays were obtained by her PCP about 1 month ago. She reports that the mass is uncomfortable when it is pressed or when using scissors. Current Medication - Amitriptyline HCl 10 MG [...] take as directed 10 days, 0 refills Social History Not a current smoker. Current [...] complaint of seasonal allergic reaction. Reviewed on 11-18-2022 Physical Findings - Vitals taken 11/18/2022 09:32 am bb Height 64 in Weight 195 lbs Body Mass Index 33.5 kg/m2 Body Surface Area 1.9 m2 Standard Measurements: - Patient was overweight. PHYSICAL EXAM: CONSTITUTIONAL: Well developed, well groomed, well nourished patient in no acute distress who appears stated age, height and weight. PSYCHIATRIC: The patient is alert and oriented to person, place, date and situation. Mood and affect are normal for current situation. NEUROLOGICAL: Sensation normal bilateral upper and lower extremities. LYMPHATIC: No pitting edema noted in the lower extremities. SKIN: No lesions noted on upper or lower extremities. Skin is dry, warm and with normal turgor. VASCULAR: No swelling in upper or lower extremities other than described below in extremity exam. Pulses normal in both upper (radial) extremities. GAIT AND STATION: Normal gait without assistive devices. Station normal. RIGHT WRIST/HAND: Able to make a full composite fist Hand is warm and well perfused Sensation intact to light touch distally in all nerve distributions CMC is tender to palpation. CMC grind is positive with crepitus. MPJ crepitus with range of motion Laxity of the ulnar collateral ligament consistent with chronic insufficiency Ovoid well circumscribed semi-mobile mass subcutaneously over the EPL tendon over the proximal phalanx of the thumb Intact flexion and extension of the thumb No tinel of the mass Tests RIGHT THUMB X-RAYS (outside images 10/03/2022): MPJ, IPJ, and CMC arthrosis. Previous Tests Imaging: X-Ray: An X-ray was [...] been discussed with the patient. Kassi has a 3 month old mass at the proximal phalanx of her right thumb. 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 We discussed the risks and benefits of observation vs. operative intervention (excision). She opted to proceed with a mass excision, all of her questions and concerns were addressed. She will return for follow up postoperatively. Surgical vs. nonsurgical treatment options were discussed with the patient. The risks and benefits of each were discussed in detail. With regard to surgery the major risks, to include but not limited to bleeding, infection, nerve and blood vessel injury, tendon injury, residual pain, numbness, stiffness, blood clots and risks related to anesthesia including were discussed. The patient understands the risk of surgery to include but are not limited to infection, possible nerve damage, tendon or vessel injury, scar sensitivity and anesthesia. The patient understands the need for postoperative rehabilitation and therapy. We discussed the possibility of surgical procedure failure, persistent pain, loss of motion, persistent stiffness, persistent weakness, and the possible need for a revision surgery. The patient's questions were answered fully, no guarantees were provided. At the completion of this conversation, the patient elected to proceed with surgery. They will be scheduled at their earliest convenience. Notes Transcribed by Gregg Quevedo, acting as a scribe for Dr. Montero. This dictation was done with voice recognition software and may contain errors and omissions. Practice Management Use of tobacco assessment performed and patient screened for future fall risk documentation of any fall with injury in past year. Care Team - Emerita Gracia
--- OUTSIDE RECORDS SUMMARY | 2023-08-29 16:57 | XMS_ITS | Clinical Summary ---
Author Name Unknown Address [address] [place] [address] Phone Organization [facility] , [facility] Address [address] [place] [address] Phone Care Team Providers Care Legal Biller Name Role Phone Emerita Gracia Unavailable Unavailable Tremaine Montero MD Unavailable [phone] Reason for Visit and Chief Complaint [facility] Problems Includes: Problems addressed during this encounter and other active Problems All Visits Onset Date Resolved Date Provider Condition S tatus Joint Pain Right Thumb 11/18/2022 Tremaine Montero MD Active Plan of Treatment No Plan of Treatment Recorded Assessments Includes: Assessments from this encounter No Assessments Recorded Medical Equipment - Implanted Devices Includes: Current Devices No Medical Equipment Recorded Medications Includes: Medications discussed during this encounter and other current Medications New / Renewed during this visit Tremaine Montero MD on 11/29/2022 HYDROcodone-Acetaminophen 5- 325 MG Oral Tablet Provider: Tremaine Montero MD 2 day supply: 6 tablet, 0 refills Diagnosis: 1 tablet by mouth every 6 hours prn pain Pharma cy: [facility] [address], [address] - Current Medications (continue as prescribed) metFORMIN HCl [...] Tablet 10/03/2022 Provi germaine: NETTE GRACIA Diagnosis: Medications Administered Includes: Administered Medications from this encounter No Administered Medications Recorded Results Includes: Results discussed during this encounter No Results Recorded For Specified Dates History of Present Illness Includes: History of Present Illness from this encounter No History of Present Illness Recorded Social History No Social History Recorded - Smoking Status Unknown Procedures and Surgical History Includes: Procedures from this encounter Procedures Code Diagnosis Performing Provider Service Location Service Date REMOVE TENDON SHEATH LESION (RIGHT) 06470 Other bursal cyst, right hand Tremaine Montero MD [facility] 11/29/2022 Medical History Includes: Medical History addressed during this encounter No Medical History Recorded Family History Includes: Family History addressed during this encounter No Family History Recorded Review of Systems Includes: Review of Systems from this encounter No Review of Systems Recorded Mental Status Includes: Mental Status from this encounter No Mental Status Recorded Functional Status Includes: Functional Status from this encounter No Functional Status Recorded Physical Exam Includes: Physical Exam from this encounter No Physical Exam Recorded Allergies Includes: Active Allergies No Known Allergies Encounters Encounter Provider Location Date Check-In Time Check-Out Time Diagnosis [facility] Tremaine Montero MD Surgery 11/29/2022 11:11AM 11:59PM Insurance Includes: Active Insurance Policies Plan Name Member ID Group # Subscriber Relationship Effect jg Dates 1 - Medicare Part B Psychiatric [id number] Kassi Rodriguez Self 2 - [facility] [employer] [id number] Kassi Perez 08/25/19 23 - Unknown Clinical Notes Includes: Clinical Notes from this encounter No Clinical Notes Recorded
== END 2023-08-29 23:59 ==
LOC: LAB.DROPOF 16:55
PROVIDERS: PCP Nurse Practitioner Family; Visit Provider Nurse Practitioner Family
DX: E11.9 Type 2 diabetes mellitus without complications (principal); I10 Essential (primary) hypertension; Z79.84 Long term (current) use of oral hypoglycemic drugs
CPT/HCPCS: 80053; 80061; 82043; 83036; 84443

== ENCOUNTER 2023-09-29 20:11 | Outpatient (CLI) | payer MEDICARE, SELFPAY | END 2023-09-29 23:59 | LOC: LAB.DROPOF 20:15 | PROVIDERS: PCP Student in an Organized Health Care Education/Training Program; Visit Provider Student in an Organized Health Care Education/Training Program | DX: N39.0 Urinary tract infection, site not specified (principal); B96.29 Other Escherichia coli [E. coli] as the cause of diseases classified elsewhere | CPT/HCPCS: 87086 ==

== ENCOUNTER 2023-11-07 18:27 | Outpatient (CLI) | payer MEDICARE, SELFPAY | END 2023-11-07 23:59 | PROVIDERS: PCP Student in an Organized Health Care Education/Training Program; Visit Provider Student in an Organized Health Care Education/Training Program | DX: N39.0 Urinary tract infection, site not specified (principal) | CPT/HCPCS: 87086 ==

== ENCOUNTER 2023-11-12 09:41 | Outpatient (CLI) | payer MEDICARE, SELFPAY ==
--- NOTE | 2023-11-12 09:42 | MM_ITS ---
PROCEDURE INFORMATION: Exam: MG Bilateral Screening 3D Mammography Exam date and time: 11/12/2023 9:35 AM Age: 68 years old Clinical indication: Screening examination TECHNIQUE: Imaging protocol: Bilateral Screening tomosynthesis and 2D mammography including computer-aided detection (CAD) when performed. COMPARISON: 1. MG MM DIG SCREENING MAMM BI W/CAD 11/08/2022 10:17 AM 2. MG MM DIG SCREENING MAMM BI W/CAD 04/16/2021 11:06 AM FINDINGS: MAMMOGRAPHY: Breast composition: There are scattered areas of fibroglandular density. Mass: None. Architectural distortion: None. Calcifications: No suspicious calcifications. Asymmetric density: None. Skin thickening: None. Axillary adenopathy: None. IMPRESSION: No mammographic evidence of malignancy. Annual screening is recommended unless otherwise clinically indicated. ASSESSMENT: BI-RADS Category 1: Negative
== END 2023-11-12 23:59 ==
PROVIDERS: PCP Nurse Practitioner Family; Visit Provider Nurse Practitioner Family
DX: Z12.31 Encounter for screening mammogram for malignant neoplasm of breast (principal)
CPT/HCPCS: 77063; 77067

== ENCOUNTER 2023-12-08 13:11 | Outpatient (CLI) | payer MEDICARE, SELFPAY ==
[2023-12-08 13:03] LABS: Basophils # 0.1 K/mm3 (0-0.2); Basophils % 0.8 % (0.1-2.0); Eosinophils # 0.1 K/mm3 (0.0-0.4); Eosinophils % 2.4 % (0.1-12.0); Hematocrit 46.3 % (37.0-47.0); Hemoglobin 14.6 g/dL (12.2-16.2); Lymphocytes # 1.9 K/mm3 (0.7-4.5); Lymphocytes % 31.5 % (10-50); Mean Corpuscular HGB Conc 31.5 g/dL (31.8-35.4); Mean Corpuscular Hemoglobin 27.7 pg (27.0-31.2); Mean Corpuscular Volume 87.9 fl (81-99); Mean Platelet Volume 9.2 fl (7.4-10.4); Monocytes # 0.3 K/mm3 (0.1-1.0); Monocytes % 4.2 % (1.7-9.3); Neutrophils # 3.7 K/mm3 (1.8-7.8); Neutrophils % 61.1 % (37.0-80.0); Platelet Count 234 K/mm3 (142-424); Red Blood Count 5.27 M/mm3 (4.20-5.40); Red Cell Distribution Width 15.7 % (11.5-17.5); White Blood Count 6.1 K/mm3 (4.8-10.8)
[2023-12-08 13:17] LABS: Microalbumin < 6.000 mg/L (0-16.7)
[2023-12-08 13:44] LABS: Alanine Aminotransferase 21 U/L (12-78); Albumin Level 4.1 g/dl (3.5-5.0); Albumin/Globulin Ratio 1.4 (1.1-1.8); Alkaline Phosphatase 94 U/L (38-126); Aspartate Amino Transferase 31 U/L (14-36); Bilirubin,Total 0.5 mg/dl (0.2-1.3); Blood Urea Nitrogen 16 mg/dl (7-17); Calcium 9.5 mg/dl (8.4-10.2); Carbon Dioxide 31 mmol/L (22.0-30.0); Chloride 104 mmol/L (98-107); Chol/HDL Ratio 3.2 (1-3.5); Cholesterol 209 mg/dl (140-200); Estimated Glomerular Filt Rate 72 ml/min (>60); GFR (African American) 87 ML/MIN (>60); Globulin 2.9 g/dL (1.3-3.2); Glucose 121 mg/dl (74-100); HDL Cholesterol 65 mg/dl (40-60); Sodium 140 mmol/L (136-145); Triglycerides 113 mg/dl (30-150); VLDL Cholesterol 23 mg/dL (0-40)
[2023-12-08 13:54] LABS: Direct LDL Cholesterol 113.76 mg/dL (100-129)
[2023-12-08 14:14] LABS: Thyroid Stimulating Hormone 2.44 uIU/mL (0.465-4.68)
[2023-12-09 09:04] LABS: Triiodothyronine (T3) Free 2.7 pg/mL (2.0-4.4)
== END 2023-12-08 23:59 | disposition home or self-care (01) ==
LOC: LAB.DROPOF 13:11
PROVIDERS: PCP Nurse Practitioner Family; Visit Provider Nurse Practitioner Family
DX: I10 Essential (primary) hypertension (principal); E11.9 Type 2 diabetes mellitus without complications; Z79.84 Long term (current) use of oral hypoglycemic drugs
CPT/HCPCS: 80053; 80061; 82043; 83036; 84443; 84481; 85025

== ENCOUNTER 2024-03-01 12:30 | Outpatient (CLI) | payer MEDICARE, SELFPAY ==
[2024-03-01 13:29] LABS: Hemoglobin A1C 7.9 % (4.0-6.0)
== END 2024-03-01 23:59 | disposition home or self-care (01) ==
LOC: LAB.DROPOF 12:30
PROVIDERS: PCP Nurse Practitioner Family; Visit Provider Nurse Practitioner Family
DX: E11.9 Type 2 diabetes mellitus without complications (principal)
CPT/HCPCS: 83036

== ENCOUNTER 2024-03-29 11:02 | Outpatient (CLI) | payer MEDICARE, SELFPAY | END 2024-03-29 23:59 | disposition home or self-care (01) | LOC: LAB.DROPOF 03-30 11:03 | PROVIDERS: PCP Student in an Organized Health Care Education/Training Program; Visit Provider Student in an Organized Health Care Education/Training Program | DX: N39.0 Urinary tract infection, site not specified (principal) | CPT/HCPCS: 87086; 87088; 87186 ==

== ENCOUNTER 2024-04-05 16:04 | Outpatient (CLI) | payer MEDICARE, SELFPAY | END 2024-04-05 23:59 | disposition home or self-care (01) | LOC: LAB.DROPOF 16:04 | PROVIDERS: PCP Nurse Practitioner Family; Visit Provider Nurse Practitioner Family | DX: N39.0 Urinary tract infection, site not specified (principal) | CPT/HCPCS: 87086; 87088; 87186 ==

== ENCOUNTER 2024-07-20 06:50 | Day surgery (SDC) | payer MEDICARE, SELFPAY ==
[2024-07-20] MEDS: LACTATED RINGERS 1000ML 1,000 ML 25 ML IV (07:07)
[2024-07-20 07:08] VITALS: BP 124/74; PULSE 66; RESP 17; TEMP 36.1; O2SAT 100; BMI 33.5
--- NOTE | 2024-07-20 07:30 | HMH.SCOPE ---
Procedure: Date: 07/20/24 Patient Date of :: 1955 Procedure Performed:: Colonoscopy with polypectomy Indications:: History of colon polyps Note: Colonoscopy June 2021 was somewhat complicated by poor relaxation. Multiple complex polyps noted including a 2 cm complex polyp at 55 cm that was excised by way of snare. Tattoo placed. Follow-up colonoscopy in October 2021 confirms sigmoid diverticulosis. Her tattoo site appeared normal. Performing Provider:: Sonny Rodriguez MD Referring Provider:: . Sedation:: Monitored anesthesia care Procedure:: After informed consent was obtained the patient was taken to the endoscopy suite. Sedation ensued after the patient was transferred to the left lateral decubitus position. Pulse, blood pressure, and oxygen saturation were monitored throughout the procedure. Digital rectal exam revealed no significant abnormality. The colonoscope was placed in position. The entire colon was evaluated. The colonoscope was carefully removed and the patient was transferred to recovery in stable condition. Please see findings and specimens below for detail. Findings:: Bowel preparation fair Fairly severe sigmoid tortuosity Fairly severe sigmoid spasticity Unchanged sigmoid diverticulosis Polyps (see specimens) Specimens:: Small adjacent sessile right colon polyps (cold biopsy forceps) Lobulated complex hepatic flexure polyp (cold snare) Sessile polyp at proximal margin of tattoo -55 cm (cold snare and biopsy) Recommendations:: Timing of repeat colonoscopy is pending pathology will likely be around 2-3 years secondary to history of significant polyps, polyps on short-term repeat evaluation, tortuosity, and spasticity. Complications:: No immediate Estimated blood obtained (mL): 1 Colonoscopy Component Colonoscopy Component Was a colonoscopy performed during today's procedure?: Yes Recommended follow up colonoscopy of at least 10 years?: No If no, follow up colonoscopy recommended in ___ years?: (See above) Reason for not recommending >/= 10 yr follow-up interval?: (See above)
--- NOTE | 2024-07-20 07:34 | EXP.ANES.CKL ---
[facility] Disclaimer: The information contained in this section may have been updated after the patient was seen, as this information can be updated by other users. Medical History Hypertension Diabetes mellitus Surgical History H/O colonoscopy with polypectomy 07/2022 H/O lateral meniscus repair of left knee History of bilateral knee replacement History of tubal ligation History of carpal tunnel release right Family History Mother Heart attack Father Diabetes Social History Smoking Status: Never smoker second hand exposure: No alcohol intake: never substance use type: denies use current occupational status: retired household members: spouse housing: house current occupational exposures/hazards: No caffeine: No [facility] Anesthesia Checklist Patient Identification Patient Identification: Arm Band Structural Data Admitted From: Home Planned Operative Procedure/s: Colonoscopy Consent for Planned Operative Procedure(s) Verified: Yes Verified Documents: Surgical Consent and History and Physical NPO Status Verified Time NPO: 00:00 Additional verifications Anesthesia Reactions: No Airway Assessment Mallampati Score:: Class II C-Spine Mobility Assessed: Yes TMJ Mobility Assessed: Yes Dentition: Good Dentition Neurological Assessment Level of Consciousness: Awake, Alert and Appropriate Anesthesia Plan Anesthesia Risk discussed: Yes Anesthesia Plan: Verified ASA Class: II Anesthesia Type: MAC
[2024-07-20 07:39] VITALS: O2SAT 99
[2024-07-20 08:11] VITALS: BP 93/59; PULSE 76; RESP 16; TEMP 36.2; O2SAT 94
[2024-07-20 08:21] VITALS: BP 94/58; PULSE 69; RESP 16; O2SAT 94
[2024-07-20 08:31] VITALS: BP 91/59; PULSE 57; RESP 16; O2SAT 96
[2024-07-20 08:41] VITALS: BP 105/62; PULSE 57; RESP 18; O2SAT 98
[2024-07-21 15:09] LABS: POC Glucose,Bedside 89 (70-110)
== END 2024-07-20 08:41 | disposition home or self-care (01) ==
PROVIDERS: PCP Nurse Practitioner Family; Visit Provider Surgery
PROC: 0DJD8ZZ Inspection of Lower Intestinal Tract, Via Natural or Artificial Opening Endoscopic (ICD-10-PCS; CPT 45380; principal; 2024-07-20 08:30)
DX: K57.30 Diverticulosis of large intestine without perforation or abscess without bleeding (principal); D12.2 Benign neoplasm of ascending colon; D12.5 Benign neoplasm of sigmoid colon; K63.5 Polyp of colon; Z09 Encounter for follow-up examination after completed treatment for conditions other than malignant neoplasm; Z86.0100 Personal history of colon polyps, unspecified
CPT/HCPCS: 45380; 45385; 82962; 88305; J2704; J7120

== ENCOUNTER 2025-02-08 11:47 | Outpatient (CLI) | payer MEDICARE, SELFPAY ==
[2025-02-08 16:44] LABS: Creatinine,Urine Random 70 mg/dL (Not Estab.); Microalbumin < 6.000 mg/L (0-16.7)
[2025-02-08 17:25] LABS: Alanine Aminotransferase 16 U/L (12-78); Albumin/Globulin Ratio 1.5 (1.1-1.8); Alkaline Phosphatase 77 U/L (38-126); Aspartate Amino Transferase 30 U/L (14-36); Bilirubin,Total 0.5 mg/dl (0.2-1.3); Blood Urea Nitrogen 14 mg/dl (7-17); Calcium 9.5 mg/dl (8.4-10.2); Carbon Dioxide 30 mmol/L (22.0-30.0); Chloride 103 mmol/L (98-107); Chol/HDL Ratio 4.3 (1-3.5); Cholesterol 182 mg/dl (140-200); Estimated Glomerular Filt Rate 83 ml/min (>60); GFR (African American) 101 ML/MIN (>60); Globulin 2.7 g/dL (1.3-3.2); Glucose 91 mg/dl (74-100); HDL Cholesterol 42 mg/dl (40-60); Sodium 137 mmol/L (136-145); Total Protein,Serum 6.7 g/dl (6.3-8.2); Triglycerides 200 mg/dl (30-150); VLDL Cholesterol 40 mg/dL (0-40)
[2025-02-08 17:37] LABS: Direct LDL Cholesterol 104.48 mg/dL (100-129)
[2025-02-08 17:55] LABS: Thyroid Stimulating Hormone 1.31 uIU/mL (0.465-4.68)
[2025-02-08 18:02] LABS: Hemoglobin A1C 6.2 % (4.0-6.0)
--- OUTSIDE RECORDS SUMMARY | 2025-02-09 10:45 | XMS_ITS | Clinical Summary ---
Author Organization Healthcare Address [address] [place] [address] Care Team Providers Care Medical Insurance Coder Name Role Phone Unavailable Primary Care Provider Unavailabl e Social History Tobacco Use Types Packs/Day Years Used Date Smoking Tobacco: Never Assessed Comments Unknown Sex and Gender Information Value Date Recorded Sex Assigned at Not on file Legal Sex Female 8:32 AM EDT Gender Identity Not on file Sexual Orientation Not on file Last Filed Vital Signs Vital Sign Reading Time Taken Comments Blood Pressure - - Pulse - - Temperature - - Respiratory Rate - - Oxygen Saturation - - Inhaled Oxygen Concentration - - Weight 88.5 kg (195 lb) 11/18/2022 7:00 AM EDT Height 162.6 cm (5' 4 ) 11/18/2022 7:00 AM EDT Body Mass Index 33.47 11/18/2022 7:00 AM EDT Plan of Treatment Health Maintenance Due Date Last Done Comments [facility]-Bone Density Scan 1955 [facility]-Depression Screening 1955 [facility]-Infant/Child/Adol SDOH Screenings 1955 [facility]- SDOH Screenings 1974 [facility]-Adult SDOH Screenings 1974 [facility]-DTaP,Tdap,and Td Vaccine s (1 - Tdap) 1975 CT Colonography 2001 Colonoscopy 2001 FIT-DNA 2001 FIT 2001 FOBT 2001 Sigmoidoscopy 2001 [facility]-Colorectal Cancer Screening 2001 [facility]-Pneumococcal Vaccine: 50 + Years (1 of 1 - PCV) 2006 [facility]-Zoster Vaccines (1 of 2) 2006 [facility]-SWVDU-21 Vaccine (1 - 20 24-25 season) 2024 [facility]-Influenza Vaccine ([place] n Ended) 2025 [facility]-RSV Vaccine: 60+ Years o r (1 - 1-dose 75+ series) 2031 HPV Vaccines Aged Out No longer eligi ble based on patient's age to complete this topic [facility]-HIB Vaccines Aged Out No longer e ligible based on patient's age to complete this topic [facility]-Hepatitis A Vaccines Aged Out No longer eligible based on patient's age to complete this topic [facility]-IPV Vaccines Aged Out No longer e ligible based on patient's age to complete this topic [facility]-Rotavirus Vaccines Aged Out No lo nger eligible based on patient's age to complete this topic Insurance [employer]
--- OUTSIDE RECORDS SUMMARY | 2025-02-09 10:46 | XMS_ITS | Data Portability ---
Author Organization [facility] Address [address] [place] [address] Assessment No assessment recorded. Plan of Treatment Reminders Order Date Submit Date Provider Last Modified By Organization Details Last Modified Time Details Appointments None recorded. Lab urinalysis, dipstick 2024 025 [facility], [address] [place] [address], [id number], 5 15:07:48 culture, urine 2024 025 [facility], [address], [place], [place], [address], 5 05:06:31 urinalysis, dipstick 2023 024 [facility], [address] [place] [address], [id number], 4 13:54:21 urinalysis, dipstick 2023 024 [facility], [address] [place] [address], [address], 4 10:37:29 culture, urine 2023 024 [facility], [address], [place], [place], [address], 4 22:06:00 Referral None recorded. Procedures None recorded. Surgeries None recorded. Imaging None recorded. Medication Orders cephalexin 500 mg capsule 2024 025 [facility], [address] [place] [address], [facility] [address], [place], [address], 5 15:15:09 ketoconazol e 2 % topical cream 2024 025 [facility], [address] [place] [address], [facility] [address], [place], [address], 5 15:15:07 cephalexin 500 mg capsule 2023 024 [facility], [address] [place] [address], [facility] [address], [place], [address], 4 13:15:22 Zyrtec 10 mg tablet 2023 024 [facility], [address] [place] [address] 2, [place], [address], 4 13:27:11 cefdinir 300 mg capsule 2023 024 [facility], [address] [place] [address], [facility] [address], [place], [address], 4 09:53:50 Patient TargetsNo targets recorded. Patient InstructionsNo instructions recorded. Reason for Referral None Reported. Results Created Date Observation Date Name Description Value Unit Range Abnormal Flag Note LastModifiedBy Organization Detail LastModifiedTime 06/18/2006/22/2024 URINE CULTU RUSH GOLDEN urine culture, routine Final report abnormal Not Available [facility] ([facility]) [address] [facility], [place], [address], 06/22/2024 22:06:00 06/18/2006/22/2024 URINE CULTU RERUSH NE result 1 Escher ichia coli abnormal Cefaz savi <=4 ug/mL Cefaz savi with an CANDY <=16 predi cts susce ptibi lity to the oral agent s cefac tonny, cefdi wolfgang, cefpo doxim e, cefpr ozil, cefur oxime , cepha lexin , and lorac arbef when used for thera py of uncom plica naomi urina ry tract infec tions due to E. coli, Klebs iella pneum oniae , and Prote us mirab ilis. Great er than 100,0 00 colon y formi ng units per mL Not Available [facility] ([facility]) [address] [facility], [place], [address], 06/22/2024 22:06:00 06/18/2006/22/2024 URINE CULTU RE, ROUTI NE antimicrobia l susceptibili ty Commen t S = Susce ptibl e; I = Inter media te; R = Resis tant P = Posit jg; N = Negat jg MICS are expre ssed in micro grams per mL Antib iotic RSLT# 1 RSLT# 2 RSLT# 3 RSLT# 4 Amoxi cilli n/Cla vulan ic Acid S Ampic illin R Cefep justo S Ceftr iaxon e S Cefur oxime S Cipro floxa jalil S Ertap enem S Genta micin S Imipe nem S Levof loxac in S Merop enem S Nitro furan toin S Piper acill in/Ta zobac angulo S Tetra cycli ne S Tobra mycin S Trime thopr im/Cruz lfa S Not Available [facility] ([facility]) [address] [facility], [place], [address], 06/22/2024 22:06:00 06/18/2006/18/2024 urina lysis , dipst ick Leukocytes Large Not Available [address], [address], 06/18/2024 09:52:28 06/18/2006/18/2024 urina lysis , dipst ick Nitrite negati ve Not Available [address], [address], 06/18/2024 09:52:28 06/18/2006/18/2024 urina lysis , dipst ick Urobilinogen .2 Not Available Joe [address], [address], 06/18/2024 09:52:28 06/18/2006/18/2024 urina lysis , dipst ick Protein 100 Not Available [address], [address], 06/18/2024 09:52:28 06/18/2006/18/2024 urina lysis , dipst ick pH 7.0 Not Available [address], [address], 06/18/2024 09:52:28 06/18/2006/18/2024 urina lysis , dipst ick Blood Non-He molyze d: Trace Not Available [address], [address], 06/18/2024 09:52:28 06/18/2006/18/2024 urina lysis , dipst ick Specific [place] 1.020 Not Available [address], [address], 06/18/2024 09:52:28 06/18/2006/18/2024 urina lysis , dipst ick Ketone Negati ve Not Available [address], [address], 06/18/2024 09:52:28 06/18/2006/18/2024 urina lysis , dipst ick Bilirubin Negati ve Not Available [address], [address], 06/18/2024 09:52:28 06/18/2006/18/2024 urina lysis , dipst ick Glucose Negati ve Not Available [address], [address], 06/18/2024 09:52:28 06/18/2006/18/2024 urina lysis , dipst ick Appearance Slight ly Cloudy Not Available [address], [address], 06/18/2024 09:52:28 06/18/2006/18/2024 urina lysis , dipst ick Color Dark Yellow Not Available [address], [address], 06/18/2024 09:52:28 07/12/2007/12/2024 urina lysis , dipst ick Leukocytes Negati ve Not Available [address], [address], 07/12/2024 12:56:23 07/12/20 24 07/12/2024 urina lysis , dipst ick Nitrite negati ve Not Available [address], [address], 07/12/2024 12:56:23 07/12/20 24 07/12/2024 urina lysis , dipst ick Urobilinogen .2 Not Available Joe [address], [address], 07/12/2024 12:56:23 07/12/20 24 07/12/2024 urina lysis , dipst ick Protein Negati ve Not Available [address], [address], 07/12/2024 12:56:23 07/12/20 24 07/12/2024 urina lysis , dipst ick pH 7.0 Not Available [address], [address], 07/12/2024 12:56:23 07/12/20 24 07/12/2024 urina lysis , dipst ick Blood Negati ve Not Available [address], [address], 07/12/2024 12:56:23 07/12/20 24 07/12/2024 urina lysis , dipst ick Specific [place] 1.010 Not Available [address], [address], 07/12/2024 12:56:23 07/12/20 24 07/12/2024 urina lysis , dipst ick Ketone Negati ve Not Available [address], [address], 07/12/2024 12:56:23 07/12/20 24 07/12/2024 urina lysis , dipst ick Bilirubin Negati ve Not Available [address], [address], 07/12/2024 12:56:23 07/12/20 24 07/12/2024 urina lysis , dipst ick Glucose Negati ve Not Available [address], [address], 07/12/2024 12:56:23 07/12/20 24 07/12/2024 urina lysis , dipst ick Appearance Clear Not Available [address], [address], 07/12/2024 12:56:23 07/12/20 24 07/12/2024 urina lysis , dipst ick Color Yellow Not Available [address], [address], 07/12/2024 12:56:23 02/01/20 25 02/02/2025 URINE CULTU RE, ROUTI NE urine culture, routine Final report Not Available [facility] ([facility]) [address] [facility], [place], [address], 02/02/2025 05:06:31 02/01/20 25 02/02/2025 URINE CULTU RE, ROUTI NE result 1 COMMEN T Mixed uroge nital celia 10,00 0-25, 000 colon y formi ng units per mL Not Available [facility] ([facility]) [address] [facility], [place], [address], 02/02/2025 05:06:31 02/01/20 25 01/31/2025 urina lysis , dipst ick Leukocytes Trace Not Available [address], [address], 01/31/2025 14:19:06 02/01/20 25 01/31/2025 urina lysis , dipst ick Nitrite negati ve Not Available [address], [address], 01/31/2025 14:19:06 02/01/20 25 01/31/2025 urina lysis , dipst ick Urobilinogen .2 Not Available Joe [address], [address], 01/31/2025 14:19:06 02/01/20 25 01/31/2025 urina lysis , dipst ick Protein Negati ve Not Available [address] [place], [address], 01/31/2025 14:19:02/01/2001/31/2025 urina lysis , dipst ick pH 6.0 Not Available [address], [address], 01/31/2025 14:19:02/01/2001/31/2025 urina lysis , dipst ick Blood Negati ve Not Available [address], [address], 01/31/2025 14:19:02/01/2001/31/2025 urina lysis , dipst ick Specific [place] 1.020 Not Available [address], [address], 01/31/2025 14:19:02/01/2001/31/2025 urina lysis , dipst ick Ketone Negati ve Not Available [address], [address], 01/31/2025 14:19:02/01/20 25 01/31/2025 urina lysis , dipst ick Bilirubin Negati ve Not Available [address], [address], 01/31/2025 14:19:02/01/2001/31/2025 urina lysis , dipst ick Glucose Negati ve Not Available [address], [address], 01/31/2025 14:19:06 02/01/20 25 01/31/2025 urina lysis , dipst ick Appearance Clear Not Available [address], [address], 01/31/2025 14:19:06 02/01/20 25 01/31/2025 urina lysis , dipst ick Color Yellow Not Available [facility] [address] [place], [address], 01/31/2025 14:19:06 Result Notes None recorded. Problems Name Problem SNOMED Code Status Onset Date Resolution Date Notes Provider Name and Address Organization Details Recorded Time Diabetes mellitus 68899293 Active 2023 Leyla ashton [facility] - [facility] 13:57:49 Hypertensive disorder 28688510 Active 2023 Leyla ashton [facility] - [facility] 13:58:01 Problem Notes None recorded. Procedures Surgical History Date Name Laterality Status Provider Name and Address Organization Details Recorded Time 08/25/19 23 Colposcopy completed Leyla Banks [place] - [facility] 04/29/2024 13:55:30 08/25/19 15 Joint Replacement completed Leyla Banks [place] - [facility] 04/29/2024 13:55:45 08/25/19 10 Arthroscopic Surgery completed Leyla Banks [place] - [facility] 04/29/2024 13:55:45 08/25/19 10 Knee Surgery completed Leyla Jocelyn [facility] - [facility] 04/29/2024 13:55:45 08/25/18 74 Tubal Ligation completed Leylaedis Banks [place] - [facility] 04/29/2024 13:55:45 Imaging Results None recorded. Procedure Notes None recorded. Medical Equipment None Reported. Allergies Allergen ID Allergen Name Allergen Category Reaction Reaction Severity Criticality Documentation Date Start Date Code Code System Note Provider Name and Address Organization Details Recorded Time 196149 Substance with sulfonami de structure and antibacte rial mechanism of action (substanc e) medicatio n itching Not available high 04/29/2024 97847 8003 SNOMED Leyla ashton [facility] - [facility] 13:56:04 Medications Name Sig Start Date Stop Date Status Note LastModified by Organization Details LastModified Time prednisone 10 mg tablet 04/29 completed Not Available Not Available Not Available trazodone 50 mg tablet 04/29 completed Not Available Not Available Not Available triamcinolo ne acetonide 0.5 % topical cream 04/29 completed Not Available Not Available Not Available fluconazole 150 mg tablet active Not Available Not Available Not Available metoprolol succinate ER 50 mg tablet,exte nded release 24 hr Take 1 tablet every day by oral route for 90 days. active Not Available Not Available No t Available Zyrtec 10 mg tablet Take 1 tablet every day by oral route. 07/12 completed Not Available Not Available Not Available ciprofloxac in 250 mg tablet 04/29 completed Not Available Not Available Not Available ciprofloxac in 500 mg tablet 04/29 completed Not Available Not Available Not Available triamcinolo ne acetonide 0.1 % topical cream active Not Available Not Available Not Available cephalexin 500 mg capsule Take 1 capsule twice a day by oral route for 10 days. 2024 active Not Available Not Available Not Avai lable nystatin 100,000 unit/gram topical cream active Not Available Not Available Not Available clotrimazol e-betametha sone 1 %-0.05 % topical cream 04/29 completed Not Available Not Available Not Available nystatin 100,000 unit/gram topical powder APPLY TO THE AFFECTED AREA(S) BY TOPICAL ROUTE 2 TIMES PER DAY 2024 active Not Available Not Available Not Avai lable azelastine 137 mcg (0.1 %) nasal spray 06/18 completed Not Available Not Available Not Available ketoconazol e 2 % topical cream APPLY TO THE AFFECTED AREA(S) BY TOPICAL ROUTE ONCE DAILY for 14 days 2024 active Not Available Not Available Not Avai lable cefdinir 300 mg capsule TAKE 1 CAPSULE BY MOUTH EVERY 12 HOURS UNTIL GONE 06/18 completed Not Available Not Available Not Available metformin ER 500 mg tablet,exte nded release 24 hr 06/18 completed Not Available Not Available Not Available amoxicillin 875 mg-potassiu m clavulanate 125 mg tablet 04/29 completed Not Available Not Available Not Available tobramycin 0.3 %-dexametha sone 0.1 % eye drops,suspe nsion INSTILL 2 DROPS INTO AFFECTED EAR(S) TWICE DAILY 06/18 completed Not Available Not Available Not Available metformin ER 750 mg tablet,exte nded release 24 hr Take 1 tablet every day by oral route for 90 days. active Not Available Not Available No t Available nitrofurant oin monohydrate /macrocryst als 100 mg capsule 04/29 completed Not Available Not Available Not Available peg 3350-electr olytes 236 gram-22.74 gram-6.74 gram-5.86 gram solution 04/29 completed Not Available Not Available Not Available Vitals Date Recorded Body height Body mass index (BMI) Body weight Heart rate Oxygen saturation Oxygen saturation in Arterial blood by Pulse oximetry Respiratory rate Systolic blood pressure Diastolic blood pressure Provider Name and Address Organization Details Last Updated DateTime 5 162.56 cm 33.1 kg/m2 71525.3 3 g 89 /min 98 % 98 % 18 /min 110 mm[Hg] 78 mm[Hg] Leyla Banks [facility] 5 14:04:27 Date Recorded Body weight Body temperature Heart rate Oxygen saturation Oxygen saturation in Arterial blood by Pulse oximetry Respiratory rate Body mass index (BMI) Body height Systolic blood pressure Diastolic blood pressure Provider Name and Address Organization Details Last Updated DateTime 4 32590.7 7 g 98 [degF] 72 /min 98 % 98 % 18 /min 32.3 kg/m2 162.56 cm 136 mm[Hg] 78 mm[Hg] Leyla Banks [facility] 4 13:55:01 Date Recorded Body height Body mass index (BMI) Body weight Heart rate Body temperature Oxygen saturation Oxygen saturation in Arterial blood by Pulse oximetry Respiratory rate Systolic blood pressure Diastolic blood pressure Provider Name and Address Organization Details Last Updated DateTime 4 162.56 cm 32.3 kg/m2 48355.0 7 g 87 /min 97 [degF] 98 % 98 % 18 /min 120 mm[Hg] 82 mm[Hg] Leyla Banks [facility] 4 09:59:33 Date Recorded Body height Body mass index (BMI) Body weight Body temperature Heart rate Oxygen saturation Oxygen saturation in Arterial blood by Pulse oximetry Respiratory rate Systolic blood pressure Diastolic blood pressure Provider Name and Address Organization Details Last Updated DateTime 4 162.56 cm 32.8 kg/m2 10415.1 4 g 98 [degF] 72 /min 98 % 98 % 18 /min 118 mm[Hg] 80 mm[Hg] Leyla Banks [place] - [facility] 4 13:17:03 Social History Question Answer Notes LastModified by Organizat ion Details LastModified Time Tobacco Smoking Status Never Smoker Leyla Banks null, [place] - [facility] 04/29/2024 13:55:40 Do You Have An Advance Directive? Yes Information not available 04/29/2024 Is Blood Transfusion Acceptable In An Emergency? Yes Information not available 04/29/2024 What Is Your Level Of Caffeine Consumption? None Information not available 04/29/2024 How Much Tobacco Do You Chew? None Information not available 04/29/2024 Are You Deaf Or Do You Have Serious Difficulty Hearing? No Information not available 04/29/2024 What Type Of Diet Are You Following? CARBOHYDRATE Information not available 04/29/2024 Which Illicit Or Recreational Drugs Have You Used? None Information not available 04/29/2024 What Is The Highest Grade Or Level Of School You Have Completed Or The Highest Degree You Have Received? [id number] Information not available 04/29/2024 How Many Years Have You Used Illicit Or Recreational Drugs? 0 Information not available 04/29/2024 What Was The Date Of Your Most Recent Tobacco Screening? 01/31/2025 Information not available 01/31/2025 How Many Children Do You Have? 2 Information not available 04/29/2024 Do You Use Protection Against STDs? No Information not available 04/29/2024 What Is Your Relationship Status? Information not available 04/29/2024 Do You Use Your Seat Belt Or Car Seat Routinely? Yes Information not available 04/29/2024 Are You Sexually Active? Yes Information not available 04/29/2024 Do You Have Smoke And Carbon Monoxide Detectors In Your Home? Yes Information not available 04/29/2024 Are You Passively Exposed To Smoke? No Information no t available 04/29/2024 Do You Use Sunscreen Routinely? Yes Information not available 04/29/2024 Has Tobacco Cessation Counseling Been Provided? No Information not available 04/29/2024 Sex: Female Functional Status Question Answer Note LastModified by Organizat ion Details LastModified Time Do you use any illicit or recreational drugs? No Information not available 04/29/2024 What is your level of alcohol consumption? None Information not available 04/29/2024 Do you or have you ever used smokeless tobacco? Never used smokeless tobacco Information not available 04/29/2024 Are you currently employed? No Information not available 04/29/2024 Are you able to care for yourself? Yes Information not available 04/29/2024 Do you or have you ever used e-cigarettes or vape? Never used electronic cigarettes Information not available 04/29/2024 What is your exercise level? Moderate Information not available 04/29/2024 Mental Status Question Answer Note LastModified by Organization D etails LastModified Time Do you feel stressed (tense, restless, nervous, or anxious, or unable to sleep at night)? [id number] Information not available 04/29/2024 Family History Relationship Description Onset Age of this Age Resolved Age Notes LastModified by Organization Details LastModified Time Daughter Diabetes mellitus cbuckler Not available 2023 13:55:25 Daughter Kidney disease cbuckler Not available 2023 13:55:25 Unspecified Relation Arthritis cbuckler Not available 2023 13:55:25 Unspecified Relation Diabetes mellitus cbuckler Not available 2023 13:55:25 Medical History Condition Response Diabetes Y Skin Problems Y Obesity Y Arthritis Y Hypertension Y Ear or Hearing Problems Y Gynecological History Statement/Question Response Abnormal Pap N Date of LMP 08/25/1979 Post Menopausal Bleeding N STIs/STDs N Colposcopy 08/25/2022 HPV Vaccine N Duration of Flow (days) 0 Current Control Method None Age at Menarche 15 Age at First Child 17 If Post Menopausal, Age at Menopause 46 Frequency of Cycle (Q days) 0 Sexually Active? Y Sexual Problems? N Hormone Replacement Therapy N Obstetrics History GPAL:G 0 P 0 0 0 0 Immunizations Vaccine Type Date Status Note Provider Nam e and Address Organization Details Recorded Time Influenza, adjuvanted, trivalent, PF 4 completed Leyla Banks null, [place] - [facility] 06/18/2024 09:51:10 zoster recombinant 3 completed Leyla Banks null, [place] - [facility] 06/18/2024 09:51:11 Influenza, adjuvanted, quadrivalent, PF 3 completed Leyla Banks null, [place] - [facility] 06/18/2024 09:51:11 COVID-19 vaccine, vector-nr, rS-Ad26, PF, 0.5 mL 1 completed Leyla [place] null, [place] - [facility] 06/18/2024 09:51:11 Pneumococcal conjugate PCV20, polysaccharide [id number] conjugate, adjuvant, PF 4 completed Leyla [place] null, [place] - [facility] 06/18/2024 09:51:11 pneumococcal polysaccharide PPV23 4 completed Leyla Banks null, [place] - [facility] 06/18/2024 09:51:11 Td (adult), 2 Lf tetanus toxoid, preservative free, adsorbed 7 completed Leyla Banks null, [facility] 06/18/2024 09:51:11 Hep A, adult 9 completed Leylaedis Banks null, [place] - [facility] 06/18/2024 09:51:11 Hep A, adult 8 completed Leyla Banks null, [place] - [facility] 06/18/2024 09:51:11 Past Encounters Encounter ID Performer Location Encounter Start Date Encounter Closed Date Diagnosis/Indication Diagnosis SNOMED-CT Code Diagnosis ICD10 Code Diagnosis Note [id number] Vitor Bailey APRN [address] [address] 04/29/2024 13:19:09 04/29/2024 14:31:42 Acute left otitis media 904576007 H66.92 if symptoms increase or worsen return [id number] Vitor Bailey APRN [address] [address] 06/18/2024 09:43:21 06/18/2024 10:38:33 Acute urinary tract infection 442356175 N39.0 increase fluidscran long juicewipe front to backvoid after [facility] not hold urineantib iotics as orderedcot ton underwearr eturn if symptoms worsen or do not improve Ingrowing nail of toe of right foot 6736546968 7447103 L60.0 Seasonal a llergic rhinitis 201756000 J30.2 [id number] Vitor Bailey APRN [address] [address] 07/12/2024 12:56:26 07/12/2024 13:57:35 Increased frequency of urination 388652143 R35.0 urinalysis clear.incr ease fluidsretu rn if needed Dysuria 90734323 R30.0 urinalysis clear.incr ease fluidsretu rn if needed [id number] Vitor Bailey APRN [address] [address] 01/31/2025 13:52:38 01/31/2025 14:20:26 Acute urinary tract infection 426312221 N39.0 increase fluidscran long juicewipe front to backvoid after [facility] not hold urineantib iotics as orderedcot ton underwearr eturn if symptoms worsen or do not improve Candidiasis of skin 4988 3006 B37.2 return for worsening of symptoms Health Concerns Section Related Observation LastModified by Organization Detai ls LastModified Time None Recorded Concern Status LastModified by Organization Details LastModified Time None Recorded Advance Directives Directive Y: Payers Insurance Date Sequence Insurance Name Policy Number Policy Thomas Covered Member ID Thomas Member ID Guarantor Name 01/31/2025 1 [place] Yumiko Rodriguez [id number] Yumiko Rodriguez 01/31/2025 2 AARP (MEDICARE SUPPLEMENT) Yumiko Rordiguez [id number] Yumiko Rodriguez 01/31/2025 [employer] - [place] - [facility] (MEDICARE) Yumiko Rodriguez [id number] Yumiko Rodriguez Notes Date Note Type Note Provider Name and Address Organization Details Recorded Time 04/29/2024 text/html 68 yr old female presents for left ear pain/issue. She has been treated for about a month with steroids, antibiotics, nasal spray, and is still having issues. Patient has no hearing loss, but occasionally has a stinging sensation in her ear and ear pain with pressure Merrillbraydonmarina LopezSAMM medel [address], [place], [address], [place] - [facility] 04/29/2024 14:21:49 06/18/2024 text/html 68 yr old female presents for possible uti. She complains of burning and urgency with dribbling. She also has right great toe redness and pain, from trying to get a little piece of nail out the side of her nail bed. She also wants her left ear rechecked. She is asking what she can use for allergies other than her claritin and what to use for nasal spray to help with her sinuses and nasal drainage that is constant. Merrilllucita SAMM [facility] [address], [place], [address], [facility] - [facility] 06/18/2024 10:38:55 07/12/2024 text/html 68 yr old female presents with a possible uti, burning at times,freq recently had uti and wants to make sure its better Merrilllucita SAMM [facility]el [address], [place], [address], [place] - [facility] 07/12/2024 13:54:44 01/31/2025 text/html 69 yr old female presents with yeast under breast and abdominal folds- she also has had some urgency with urination. She would like to try ketoconazole cream for her yeast infection to the skin under breast and skin folds. pt states she had some at home and used it and it cleared the rash up. Merrilllucita SAMM [facility]el [address], [place], [address], [place] - [facility] 01/31/2025 15:08:33 OBGyn Episode No OBEpisode recorded.
--- OUTSIDE RECORDS SUMMARY | 2025-02-09 10:46 | XMS_ITS | Continuity of Care Document ---
[facility] Organization [facility] Address [address] [place] [address] Assessment No assessment recorded. Plan of Treatment Reminders Order Date Submit Date Provider Last Modified By Organization Details Last Modified Time Details Appointments None recorded. Lab urinalysis, dipstick 2024 025 [facility], [address] [place] [address], [address], 5 15:07:48 culture, urine 2024 025 [place] [facility], [address] , [facility], [place], [address], 5 05:06:31 Referral None recorded. Procedures None recorded. Surgeries None recorded. Imaging None recorded. Medication Orders cephalexin 500 mg capsule 2024 025 [facility], [address] [place] [address], [facility] [address], [address], 5 15:15:09 ketoconazol e 2 % topical cream 2024 025 [facility], [facility], [facility], [place], [address], 5 15:15:07 Patient TargetsNo targets recorded. Patient InstructionsNo instructions recorded. Reason for Referral None Reported. Results Created Date Observation Date Name Description Value Unit Range Abnormal Flag Note LastModifiedBy Organization Detail LastModifiedTime 02/01/20 25 01/31/2025 urina lysis , dipst ick Leukocytes Trace Not Available [address], [address], 01/31/2025 14:19:02/01/2001/31/2025 urina lysis , dipst ick Nitrite negati ve Not Available [address], [address], 01/31/2025 14:19:02/01/2001/31/2025 urina lysis , dipst ick Urobilinogen .2 Not Available Joe [address], [address], 01/31/2025 14:19:02/01/20 25 01/31/2025 urina lysis , dipst ick Protein Negati ve Not Available [address], [address], 01/31/2025 14:19:02/01/2001/31/2025 urina lysis , dipst ick pH 6.0 Not Available [address], [address], 01/31/2025 14:19:02/01/2001/31/2025 urina lysis , dipst ick Blood Negati ve Not Available [address], [address], 01/31/2025 14:19:02/01/2001/31/2025 urina lysis , dipst ick Specific [place] 1.020 Not Available [address], [address], 01/31/2025 14:19:02/01/20 25 01/31/2025 urina lysis , dipst ick Ketone Negati ve Not Available [address], [address], 01/31/2025 14:19:06 02/01/20 25 01/31/2025 urina lysis , dipst ick Bilirubin Negati ve Not Available [address], [address], 01/31/2025 14:19:06 02/01/20 25 01/31/2025 urina lysis , dipst ick Glucose Negati ve Not Available [address], [address], 01/31/2025 14:19:06 02/01/20 25 01/31/2025 urina lysis , dipst ick Appearance Clear Not Available [address], [address], 01/31/2025 14:19:06 02/01/20 25 01/31/2025 urina lysis , dipst ick Color Yellow Not Available [address], [address], 01/31/2025 14:19:06 Result Notes None recorded. Problems Name Problem SNOMED Code Status Onset Date Resolution Date Notes Provider Name and Address Organization Details Recorded Time Diabetes mellitus 17848860 Active 2023 [facility] - [facility] 4 13:57:49 Hypertensive disorder 27382619 Active 2023 [facility] O[facility] - [facility] 4 13:58:01 Problem Notes None recorded. Procedures Surgical History Date Name Laterality Status Provider Name and Address Organization Details Recorded Time 08/25/19 23 Colposcopy completed Leyla PERSAUD - [facility] 04/29/2024 13:55:30 08/25/19 15 Joint Replacement completed Leyla PERSAUD - [facility] 04/29/2024 13:55:45 08/25/19 10 Arthroscopic Surgery completed Leyla Banks [place] - [facility] 04/29/2024 13:55:45 08/25/19 10 Knee Surgery completed Leyla Banks [place] - [facility] 04/29/2024 13:55:45 08/25/18 74 Tubal Ligation completed Leyla PERSAUD - [facility] 04/29/2024 13:55:45 Imaging Results None recorded. Procedure Notes None recorded. Medical Equipment None Reported. Allergies Allergen ID Allergen Name Allergen Category Reaction Reaction Severity Criticality Documentation Date Start Date Code Code System Note Provider Name and Address Organization Details Recorded Time 888361 Substance with sulfonami de structure and antibacte rial mechanism of action (substanc e) medicatio n itching Not available high 04/29/2024 48045 8003 SNOMED Leyla ashton, [place] - [facility] 13:56:04 Medications Name Sig [...] Updated DateTime 5 162.56 cm 33.1 kg/m2 92510.3 3 g 89 /min 98 % 98 % 18 /min 110 mm[Hg] 78 mm[Hg] Leyla Banks [place] - [facility] 14:04:27 Social History Question Answer Notes LastModified by Organizat ion Details LastModified Time Tobacco Smoking Status Never Smoker Leyla [place]hton, [place] - [facility] 04/29/2024 13:55:40 Do You [...] Or The Highest Degree You Have Received? [id number] Information not available 04/29/2024 How Many Years [...] anxious, or unable to sleep at night)? KL6183-3 Information not available 04/29/2024 Family History Relationship Description Onset Age of this Age Resolved Age Notes LastModified by Organization Details LastModified Time Daughter Diabetes mellitus cbuckler Not available 2023 13:55:25 Daughter Kidney disease cbuckler Not available 2023 13:55:25 Unspecified Relation Arthritis cbuckler Not available 2023 13:55:25 Unspecified Relation Diabetes mellitus cbuckler Not available 2023 13:55:25 Medical History Condition Response Ear or Hearing Problems Y Skin Problems Y Diabetes Y Obesity Y Arthritis Y Hypertension Y Gynecological History Statement/Question Response Abnormal Pap [...] Influenza, adjuvanted, trivalent, PF 4 completed Leyla [place], [place] - [facility] 06/18/2024 09:51:10 zoster recombinant 3 completed Leyla Banks null, [place] - [facility] 06/18/2024 09:51:11 Influenza, adjuvanted, quadrivalent, PF 3 completed Leyla [place] null[place] - [facility] 06/18/2024 09:51:11 COVID-19 vaccine, vector-nr, rS-Ad26, PF, 0.5 mL 1 completed Leylaedis Banks null, [place] - [facility] 06/18/2024 09:51:11 Pneumococcal conjugate PCV20, polysaccharide [id number] conjugate, adjuvant, PF 4 completed Leyla Banks null, [place] - [facility] 06/18/2024 09:51:11 pneumococcal polysaccharide PPV23 4 completed Leyla Banks null, [place] - [facility] 06/18/2024 09:51:11 Td (adult), 2 Lf tetanus toxoid, preservative free, adsorbed 7 completed Leyla Banks null, [place] - [facility] 06/18/2024 09:51:11 Hep A, adult 9 completed Leyla Jocelyn [place] - [facility] 06/18/2024 09:51:11 Hep A, adult 8 completed Leyla [place] null[place] - [facility] 06/18/2024 09:51:11 Past Encounters Encounter ID Performer Location Encounter Start Date Encounter Closed Date Diagnosis/Indication Diagnosis SNOMED-CT Code Diagnosis ICD10 Code Diagnosis Note [id number] Vitor Bailey APRN [address] [address] 01/31/2025 13:52:38 01/31/2025 14:20:26 Acute urinary tract infection 365353446 N39.0 increase fluidscran long juicewipe front to backvoid after [facility] not hold urineantib iotics as orderedcot ton underwearr eturn if symptoms worsen or do not improve Candidiasis of skin 4988 3006 B37.2 return for worsening of symptoms Health Concerns Section Related Observation LastModified by Organization Detai ls LastModified Time None Recorded Concern Status LastModified by Organization Details LastModified Time None Recorded Payers Encounter Date Sequence Insurance Name Policy Number Policy Thomas Covered Member ID Thomas Member ID Guarantor Name 01/31/2025 1 [place]ICARE[place] ([place]ARE[place] Kassi Peres Michael [id number] Kassi Rodriguez 01/31/2025 2 AARP (MEDICARE SUPPLEMENT) Kassi Rodriguez [id number] Kassi Rodriguez Notes Date Note Type Note Provider Name and Address Organization Details Recorded Time 01/31/2025 text/html 69 yr old female presents with yeast under breast and abdominal folds- she also has had some urgency with urination. She would like to try ketoconazole cream for her yeast infection to the skin under breast and skin folds. pt states she had some at home and used it and it cleared the rash up. Vitor Bailey, [employer]AREPOINT DES[employer] DEVELOPER [address], [place], [address], [facility] - [facility] 01/31/2025 15:08:33 OBGyn Episode No OBEpisode recorded.
== END 2025-02-08 23:59 | disposition home or self-care (01) ==
LOC: LAB.DROPOF 02-09 10:42
PROVIDERS: PCP Nurse Practitioner Family; Visit Provider Nurse Practitioner Family
DX: E11.9 Type 2 diabetes mellitus without complications (principal)
CPT/HCPCS: 80053; 80061; 82043; 82570; 83036; 84443

== ENCOUNTER 2025-03-01 11:06 | Outpatient (CLI) | payer MEDICARE, SELFPAY ==
[2025-03-01 13:24] LABS: Microscopic, Urine URINE MICROSCOPIC (MICROSCOPIC)
[2025-03-01 14:12] LABS: Bilirubin,Urine Negative (Negative); Color,Urine YELLOW (Yellow); Glucose,Urine (UA) Negative (Negative); Ketones,Urine Negative (Negative); Leukocyte Esterase,Urine 2+ (Negative); PH,Urine 7.0 (5.0-8.5); Protein,Urine Negative (Negative); Specific Gravity, Urine <= 1.005 (1.005-1.030); Urobilinogen,Urine 0.2 EU/dl (0.2)
[2025-03-01 14:29] LABS: Squamous Epithelial Cell,Urine Occasional #/hpf (0-5)
--- OUTSIDE RECORDS SUMMARY | 2025-03-02 10:41 | XMS_ITS | Clinical Summary ---
Author Organization Healthcare Address [address] [place] [address] Care Team Providers Care Girls Swimming Coach Name Role Phone Unavailable Primary Care Provider [...] UKY-Bone Density Scan 1956 UKY-Depression Screening 1956 UKY-/Child/Adol SDOH Screenings 1956 UKY- SDOH Screenings 1974 UKY-Adult SDOH Screenings 1974 UKY-DTaP,Tdap,and Td Vaccine s (1 - Tdap) 1975 CT Colonography 2001 Colonoscopy 2001 FIT-DNA 2001 FIT 2001 FOBT 2001 Sigmoidoscopy 2001 UKY-Colorectal Cancer Screening 2001 UKY-Pneumococcal Vaccine: 50 + Years (1 of 1 - PCV) 2006 UKY-Zoster Vaccines (1 of 2) 2006 YEO-QPWGO-22 Vaccine (1 - 20 24-25 season) 2024 UKY-Influenza Vaccine (#1) 2025 UKY-RSV Vaccine: 60+ Years o r [...] complete this topic Insurance [employer] [address] [place] [id number]
--- OUTSIDE RECORDS SUMMARY | 2025-03-02 10:42 | XMS_ITS | Continuity of Care Document ---
Author Organization [facility] Olive[facility] Address [address] [place] [address] Assessment No assessment recorded. Plan of Treatment Reminders Order Date Submit Date Provider Last Modified By Organization Details Last Modified Time Details Appointments None recorded. Lab urinalysis , dipstick 2024 025 [facility], [address] [place] [address], [address], 5 09:36:28 culture, urine 2024 025 [place] [facility], [address] [facility], [facility] [place], [place], [address], 04:06:26 Referral None recorded. Procedures None recorded. Surgeries None recorded. Imaging None recorded. Medication Orders Macrobid 100 mg capsule 2024 025 [facility], [address] [facility], [address], [place], [address], 5 09:44:54 Patient TargetsNo targets recorded. Patient InstructionsNo instructions recorded. Reason for Referral None Reported. Results Created Date Observation Date Name Description Value Unit Range Abnormal Flag Note LastModifiedBy Organization Detail LastModifiedTime 02/22/2002/21/2025 urina lysis , dipst ick Leukocytes Trace Not Available [address], [address], 02/21/2025 09:13:02 02/22/202025 urina lysis , dipst ick Nitrite negati ve Not Available [address], [address], 02/21/2025 09:13:02 02/22/2002/21/2025 urina lysis , dipst ick Urobilinogen .2 Not Available Joe [address], [address], 02/21/2025 09:13:02 02/22/20 25 02/21/2025 urina lysis , dipst ick Protein Negati ve Not Available [address], [address], 02/21/2025 09:13:02 02/22/2002/21/2025 urina lysis , dipst ick pH 6.0 Not Available [address], [address], 02/21/2025 09:13:02 02/22/2002/21/2025 urina lysis , dipst ick Blood Negati ve Not Available [address], [address], 02/21/2025 09:13:02 02/22/2002/21/2025 urina lysis , dipst ick Specific [place] 1.015 Not Available [address], [address], 02/21/2025 09:13:02 02/22/2002/21/2025 urina lysis , dipst ick Ketone Negati ve Not Available [address], [address], 02/21/2025 09:13:02 02/22/2002/21/2025 urina lysis , dipst ick Bilirubin Negati ve Not Available [address], [address], 02/21/2025 09:13:02 02/22/20 25 02/21/2025 urina lysis , dipst ick Glucose Negati ve Not Available [address], [address], 02/21/2025 09:13:02 02/22/20 25 02/21/2025 urina lysis , dipst ick Appearance Clear Not Available [address], [address], 02/21/2025 09:13:02 02/22/2002/21/2025 urina lysis , dipst ick Color Yellow Not Available [address], [address], 02/21/2025 09:13:02 Result Notes None recorded. Problems Name Problem SNOMED Code Status Onset Date Resolution Date Notes Provider Name and Address Organization Details Recorded Time Diabetes mellitus 33348569 Active 2023 [facility] Osorio - [facility] 13:57:49 Hypertensive disorder 93760497 Active 2023 [facility] Osorio - [facility] 13:58:01 Problem Notes None recorded. Procedures Surgical History Date Name Laterality Status Provider Name and Address Organization Details Recorded Time 08/25/19 23 Colposcopy completed Leyla PERSAUD - [facility] 04/29/2024 13:55:30 08/25/19 15 Joint Replacement completed Leyla PERSAUD - [facility] 04/29/2024 13:55:45 08/25/19 10 Arthroscopic Surgery completed Leyla PERSAUD - [facility] 04/29/2024 13:55:45 08/25/19 10 Knee Surgery completed Leyla PERSAUD - [facility] 04/29/2024 13:55:45 08/25/18 74 Tubal Ligation completed Leyla Banks [place] - [facility] 04/29/2024 13:55:45 Imaging Results None recorded. Procedure Notes None recorded. Medical Equipment None Reported. Allergies Allergen ID Allergen Name Allergen Category Reaction Reaction Severity Criticality Documentation Date Start Date Code Code System Note Provider Name and Address Organization Details Recorded Time 959908 Substance with sulfonami de structure and antibacte rial mechanism of action (substanc e) medicatio n itching Not available high 04/29/2024 12375 8003 SNOMED Leyla [place], [place] - [facility] 13:56:04 Medications Name Sig Start Date Stop Date Status Note LastModified by Organization Details LastModified Time prednisone 10 mg tablet 04/29 completed Not Available Not Available Not Available trazodone 50 mg tablet 04/29 completed Not Available Not Available Not Available triamcinolo ne acetonide 0.5 % topical cream 04/29 completed Not Available Not Available Not Available fluconazole 150 mg tablet 02/21 completed Not Available Not Available Not Available metoprolol [...] active Not Available Not Available Not Available Macrobid 100 mg capsule Take 1 capsule every 12 hours by oral route for 5 days. 2024 active Not Available Not Available Not Avai lable cephalexin 500 mg capsule Take 1 capsule twice a day by oral route for 10 days. 02/14 completed Not Available Not Available Not Available nystatin 100,000 unit/gram topical cream active Not [...] completed Not Available Not Available Not Available levofloxaci n 500 mg tablet Take 1 tablet every 24 hours by oral route. 02/21 completed Not Available Not Available Not Available [...] Not Available Not Available No t Available peg 3350-electr olytes 236 gram-22.74 gram-6.74 gram-5.86 gram solution 04/29 completed Not Available Not Available Not Available Vitals Date Recorded Body height Respiratory rate Body mass index (BMI) Body weight Body temperature Oxygen saturation Oxygen saturation in Arterial blood by Pulse oximetry Heart rate Systolic And Diastolic Provider Name and Address Organization Details Last Updated DateTime 5 162.56 cm 18 /min 33.3 kg/m2 43351.9 2 g 97.9 [degF] 99 % 99 % 62 /min 154/86 mm[Hg] Lauryn Stears [place] - [facility] 5 09:15:33 Social History Question Answer Notes LastModified by [...] Or The Highest Degree You Have Received? [id number] Information not available 04/29/2024 How Many Years [...] anxious, or unable to sleep at night)? IP6990-1 Information not available 04/29/2024 Family History Relationship Description Onset Age of this Age Resolved Age Notes LastModified by Organization Details LastModified Time Daughter Diabetes mellitus cbuckler Not available 2023 13:55:25 Daughter Kidney disease cbuckler Not available 2023 13:55:25 Unspecified Relation Arthritis cbuckler Not available 2023 13:55:25 Unspecified Relation Diabetes mellitus cbuckler Not available 2023 13:55:25 Medical History Condition Response Diabetes Y Obesity Y Arthritis Y Ear or Hearing Problems Y Skin Problems Y Hypertension Y Gynecological History Statement/Question Response [...] trivalent, PF 4 completed Leyla Banks null, [place] - [facility] 06/18/2024 09:51:10 zoster recombinant 3 completed Leyla [place] null[place] - [facility] 06/18/2024 09:51:11 Influenza, adjuvanted, quadrivalent, PF 3 completed Leyla [place] null[place] - [facility] 06/18/2024 09:51:11 COVID-19 vaccine, vector-nr, rS-Ad26, PF, 0.5 mL 1 completed Leyla Banks null, - [facility] 06/18/2024 09:51:11 Pneumococcal conjugate PCV20, polysaccharide [id number] conjugate, adjuvant, PF 4 completed Leyla Banks null, [place] - [facility] 06/18/2024 09:51:11 pneumococcal polysaccharide PPV23 4 completed Leyla Banks null, [place] - [facility] 06/18/2024 09:51:11 Td (adult), 2 Lf tetanus toxoid, preservative free, adsorbed 7 completed Leyla Banks null, [place] - [facility] 06/18/2024 09:51:11 Hep A, adult 9 completed Leyla [place], [place] - [facility] 06/18/2024 09:51:11 Hep A, adult 8 completed Leyla Banks null, [place] - [facility] 06/18/2024 09:51:11 Past Encounters Encounter ID Performer Location Encounter Start Date Encounter Closed Date Diagnosis/Indication Diagnosis SNOMED-CT Code Diagnosis ICD10 Code Diagnosis Note [id number] Vitor Bailey [address] [address] 01/31/2025 13:52:38 01/31/2025 14:20:26 Acute urinary tract infection 306512700 N39.0 increase fluidscran long juicewipe front to backvoid after inter[facility] not hold urineantib iotics as orderedcot ton underwearr eturn if symptoms worsen or do not improve Candidiasis of skin 4988 3006 B37.2 return for worsening of symptoms [id number] Vitor Bailey [address] [address] 02/14/2025 11:07:58 02/14/2025 11:57:06 Acute urinary tract infection 037631363 N39.0 increase fluidscran long juicewipe front to backvoid after inter[facility] not hold urineantib iotics as orderedcot ton underwearr eturn if symptoms worsen or do not improve Finding of fluid behind tympanic membrane 782034749 H65.93 continue meds [id number] Vitor Bailey APRN [address] [address] 02/21/2025 09:08:03 02/21/2025 09:38:15 Acute urinary tract infection 469763976 N39.0 increase fluidscran long juicewipe front to backvoid after inter[facility] not hold urineantib iotics as orderedcot ton underwearr eturn if symptoms worsen or do not improve Health Concerns Section Related Observation LastModified by Organization Detai ls LastModified Time None Recorded Concern Status LastModified by Organization Details LastModified Time None Recorded Payers Encounter Date Sequence Insurance Name Policy Number Policy Thomas Covered Member ID Thomas Member ID Guarantor Name 02/21/2025 1 [place] Kassi Peres Michael [id number] Kassi Rodriguez 02/21/2025 2 AARP (MEDICARE SUPPLEMENT) Kassi Rodriguez [id number] Kassi Rodriguez Notes Date Note Type Note Provider Name and Address Organization Details Recorded Time 02/21/2025 text/html 69 year old female who presents to the office today for a follow up on uti- medication finished on Friday still having freq,burning and discomfort with voiding Vitor Bailey APRN [facility] [address], [place], [address], [place] - [facility] 02/21/2025 09:37:43 OBGyn Episode No OBEpisode recorded.
== END 2025-03-01 23:59 | disposition home or self-care (01) ==
LOC: LAB.DROPOF 03-02 10:39
PROVIDERS: PCP Nurse Practitioner Family; Visit Provider Nurse Practitioner Family
DX: R30.0 Dysuria (principal)
CPT/HCPCS: 81001; 87086

== ENCOUNTER 2025-03-14 16:05 | Outpatient (CLI) | payer MEDICARE, SELFPAY ==
[2025-03-14 12:18] LABS: Microscopic, Urine URINE MICROSCOPIC (MICROSCOPIC)
--- OUTSIDE RECORDS SUMMARY | 2025-03-14 16:10 | XMS_ITS | Clinical Summary ---
Author Organization Healthcare Address [address] [place] [address] Care Team Providers Care Map Plotter Name Role Phone Unavailable Primary Care Provider [...] 2006 UKY-Zoster Vaccines (1 of 2) 2006 FPF-NDWEX-88 Vaccine (1 - 20 24-25 season) 2024 [...] complete this topic Insurance [employer] [address] [place] [id number]
--- OUTSIDE RECORDS SUMMARY | 2025-03-14 16:10 | XMS_ITS | Clinical Summary ---
Author Organization [facility] Address [address] [place] [address] Care Team Providers Care Manager Women Name Role Phone Suyapa Gracia APRN Primary Care Provider Social History Tobacco Use Types Packs/Day Years Used Date Smoking Tobacco: Never Assessed Abuse Screen Answer Date Recorded Unsafe at Home or Work/School Not on file Feels Threatened by Someone? Not on file 04/2023 Does Anyone Keep You from Co ntacting Others or Doint Things Outside the Home? Not on file 06/02/2023 Physical Sign of Abuse Present Not on file 1 Housing Stability Answer Date Recorded Current Living Arrangements Not on file 04/2023 Potentially Unsafe Housing Conditions Not on denis e 06/02/2023 Family and Community Support Answer Jer e Recorded Help with Day-to-Day Activities Not on file 06/02/2023 Lonely or Isolated Not on file 06/02/2023 Employment Answer Date Recorded Do you want help finding or keeping work or a hayes b? Not on file 06/02/2023 Disabilities Answer Date Recorded Concentrating, Remembering, or Making Decisions Difficulty Not on file 06/02/2023 Doing Errands Independently Difficulty Not on fi le 06/02/2023 Education Answer Date Recorded Help with school or training? Not on file Preferred Language Not on file 06/02/2023 Comments Unknown Sex and Gender Information Value Date Recorded Sex Assigned at Not on file Legal Sex Female 10:45 AM EDT Gender Identity Not on file Sexual Orientation Not on file Last Filed Vital Signs Vital Sign Reading Time Taken Comments Blood Pressure - - Pulse - - Temperature - - Respiratory Rate - - Oxygen Saturation - - Inhaled Oxygen Concentration - - Weight 88.5 kg (195 lb) 12/05/2022 9:48 AM EDT Height 162.6 cm (5' 4 ) 12/05/2022 9:48 AM EDT Body Mass Index 33.47 12/05/2022 9:48 AM EDT Plan of Treatment Health Maintenance Due Date Last Done Comments ANNUAL PHYSICAL 1955 DXA SCAN 1955 HEPATITIS C SCREENING 1955 MAMMOGRAM 1996 COLOGUARD 2001 COLON CANCER SCREENING 5 YEAR SIGMOIDOSCOPY 2001 COLONOSCOPY 2001 [address] CANCER SCREENING 2001 CT COLONOGRAPHY 2001 FECAL OCCULT BLOOD TEST 2001 FIT Testing (1 year) 2001 Pneumococcal Vaccine 50+ (1 of 1 - PCV) 2006 ZOSTER VACCINE (1 of 2) 2006 TDAP/TD VACCINES (2 - Tdap) 10/29/2006 10/29/1996 COVID-19 Vaccine (2 - season) 04/25/202405/2021 INFLUENZA VACCINE 05/25/2025 Insurance MEDICARE A & B [facility] [employer] Care Teams Manager Women Relationship Specialty Start Date End Date Suyapa Gracia APRN PCP - General Internal Medicine 12/05/22
[2025-03-14 18:24] LABS: Bilirubin,Urine Negative (Negative); Color,Urine YELLOW (Yellow); Glucose,Urine (UA) Negative (Negative); Ketones,Urine Negative (Negative); Leukocyte Esterase,Urine 1+ (Negative); PH,Urine 6.0 (5.0-8.5); Protein,Urine Negative (Negative); Specific Gravity, Urine <= 1.005 (1.005-1.030); Urobilinogen,Urine 0.2 EU/dl (0.2)
[2025-03-14 18:33] LABS: RBC,Urine Occasional #/hpf (0-3); WBC,Urine Occasional #/hpf (0-3)
[2025-03-14 18:34] LABS: Bacteria,Urine Trace /lpf; Renal Epithelial Cells,Urine Occasional #/lpf (0)
== END 2025-03-14 23:59 | disposition home or self-care (01) ==
LOC: LAB.DROPOF 16:06
PROVIDERS: PCP Nurse Practitioner Family; Visit Provider Nurse Practitioner Family
DX: N39.0 Urinary tract infection, site not specified (principal)
CPT/HCPCS: 81001; 87086

== ENCOUNTER 2025-03-17 12:52 | Outpatient (CLI) | payer MEDICARE, SELFPAY ==
--- OUTSIDE RECORDS SUMMARY | 2025-03-21 12:59 | XMS_ITS | Clinical Summary ---
Author Organization [facility] Address [address] [place] [address] Care Team Providers Care Template Checker Name Role Phone Suyapa Gracia APRN Primary [...] VACCINE 05/25/2025 Insurance MEDICARE A & B [facility] Care Teams Template Checker Relationship Specialty Start Date End Date Suyapa Gracia APRN PCP - General Internal Medicine 12/05/22
--- OUTSIDE RECORDS SUMMARY | 2025-03-21 12:59 | XMS_ITS | Continuity of Care Document ---
Author Organization [facility] Address [address] [place] [address] Assessment No assessment recorded. Plan of Treatment Reminders Order Date Submit Date Provider Last Modified By Organization Details Last Modified Time Details Appointments None recorded. Lab urinalysis , dipstick 2024 025 [facility], [address] [place] [address], [address], 5 09:36:28 culture, urine 2024 025 [place], [address] [facility], [facility], [place], [address], 5 04:06:26 Referral None recorded. Procedures None recorded. Surgeries None recorded. Imaging None recorded. Medication Orders Macrobid 100 mg capsule 2024 025 [facility], [address] [facility], [address], [place], [address], 5 05:02:14 Patient TargetsNo targets recorded. Patient InstructionsNo instructions recorded. Reason for Referral None Reported. Results Created Date Observation Date Name Description Value Unit Range Abnormal Flag Note LastModifiedBy Organization Detail LastModifiedTime 02/01/2002/02/2025 URINE CULTU RE, RUSH NE urine culture, routine Final report Not Available [facility] ([facility]) [address] [facility], [place], [address], 02/02/2025 05:06:31 02/01/20 25 02/02/2025 URINE CULTU RE, ROUTI NE result 1 COMMEN T Mixed uroge nital celia 10,00 0-25, 000 colon y formi ng units per mL Not Available [facility] ([facility]) [address] [facility], [place], [address], 02/02/2025 05:06:31 02/01/2001/31/2025 urina lysis , dipst ick Leukocytes Trace Not Available [address], [address], 01/31/2025 14:19:06 02/01/2001/31/2025 urina lysis , dipst ick Nitrite negati ve Not Available [address], [address], 01/31/2025 14:19:02/01/2001/31/2025 urina lysis , dipst ick Urobilinogen .2 Not Available Joe [address], [address], 01/31/2025 14:19:02/01/20 25 01/31/2025 urina lysis , dipst ick Protein Negati ve Not Available [address], [address], 01/31/2025 14:19:02/01/2001/31/2025 urina lysis , dipst ick pH 6.0 Not Available [address], [address], 01/31/2025 14:19:02/01/20 25 01/31/2025 urina lysis , dipst ick Blood Negati ve Not Available [address], [address], 01/31/2025 14:19:06 02/01/20 25 01/31/2025 urina lysis , dipst ick Specific [place] 1.020 Not Available [address], [address], 01/31/2025 14:19:02/01/2001/31/2025 urina lysis , dipst ick Ketone Negati ve Not Available [address], [address], 01/31/2025 14:19:02/01/2001/31/2025 urina lysis , dipst ick Bilirubin Negati ve Not Available [address], [address], 01/31/2025 14:19:02/01/2001/31/2025 urina lysis , dipst ick Glucose Negati ve Not Available [address], [address], 01/31/2025 14:19:02/01/2001/31/2025 urina lysis , dipst ick Appearance Clear Not Available [address], [address], 01/31/2025 14:19:02/01/2001/31/2025 urina lysis , dipst ick Color Yellow Not Available [address], [address], 01/31/2025 14:19:06 02/15/2002/16/2025 URINE CULTU RE, ROUTI NE urine culture, routine Final report Not Available [facility] ([facility]) [address] [facility], [place], [address], 02/16/2025 06:08:58 02/15/20 25 02/16/2025 URINE CULTU RE, ROUTI NE result 1 COMMEN T Mixed uroge nital celia Less than 10,00 0 colon ies/m L Not Available [facility] ([facility]) [address] [facility], [place], [address], 02/16/2025 06:08:58 02/15/20 25 02/14/2025 urina lysis , dipst ick Leukocytes Large Not Available [address], [address], 02/14/2025 11:52:32 02/15/20 25 02/14/2025 urina lysis , dipst ick Nitrite negati ve Not Available [address], [address], 02/14/2025 11:52:32 02/15/20 25 02/14/2025 urina lysis , dipst ick Urobilinogen .2 Not Available Joe [address], [address], 02/14/2025 11:52:32 02/15/20 25 02/14/2025 urina lysis , dipst ick Protein 30 Not Available [address], [address], 02/14/2025 11:52:32 02/15/20 25 02/14/2025 urina lysis , dipst ick pH 6.0 Not Available [address], [address], 02/14/2025 11:52:32 02/15/20 25 02/14/2025 urina lysis , dipst ick Blood Small Not Available [address], [address], 02/14/2025 11:52:32 02/15/20 25 02/14/2025 urina lysis , dipst ick Specific [place] 1.015 Not Available [address], [address], 02/14/2025 11:52:32 02/15/20 25 02/14/2025 urina lysis , dipst ick Ketone Negati ve Not Available [address], [address], 02/14/2025 11:52:32 02/15/20 25 02/14/2025 urina lysis , dipst ick Bilirubin Negati ve Not Available [address], [address], 02/14/2025 11:52:32 02/15/20 25 02/14/2025 urina lysis , dipst ick Glucose Negati ve Not Available [address], [address], 02/14/2025 11:52:32 02/15/20 25 02/14/2025 urina lysis , dipst ick Appearance Clear Not Available [address], [address], 02/14/2025 11:52:32 02/15/20 25 02/14/2025 urina lysis , dipst ick Color Yellow Not Available [address], [address], 02/14/2025 11:52:32 02/22/20 25 02/23/2025 URINE CULTU RE, ROUTI NE urine culture, routine Final report Not Available [facility] ([facility]) [address] [facility], [place], [address], 02/23/2025 04:06:26 02/22/20 25 02/23/2025 URINE CULTU RE, ROUTI NE result 1 COMMEN T Cultu re shows less than 10,00 0 colon y formi ng units of bacte june per manuela liter of urine . This colon y count is not gener ally consi dered to be clini tammy signi fican t. Not Available [facility] ([facility]) [address], [place], [address], 02/23/2025 04:06:26 02/22/20 25 02/21/2025 urina lysis , dipst ick Leukocytes Trace Not Available [address], [address], 02/21/2025 09:13:02 02/22/20 25 02/21/2025 urina lysis , dipst ick Nitrite negati ve Not Available [address], [address], 02/21/2025 09:13:02 02/22/20 25 02/21/2025 urina lysis , dipst ick Urobilinogen .2 Not Available Joe [address], [address], 02/21/2025 09:13:02 02/22/20 25 02/21/2025 urina lysis , dipst ick Protein Negati ve Not Available [address], [address], 02/21/2025 09:13:02 02/22/20 25 02/21/2025 urina lysis , dipst ick pH 6.0 Not Available [address], [address], 02/21/2025 09:13:02 02/22/20 25 02/21/2025 urina lysis , dipst ick Blood Negati ve Not Available [address], [address], 02/21/2025 09:13:02 02/22/20 25 02/21/2025 urina lysis , dipst ick Specific [place] 1.015 Not Available [address], [address], 02/21/2025 09:13:02 02/22/20 25 02/21/2025 urina lysis , dipst ick Ketone Negati ve Not Available [address], [address], 02/21/2025 09:13:02 02/22/20 25 02/21/2025 urina lysis , dipst ick Bilirubin Negati ve Not Available [address], [address], 02/21/2025 09:13:02 02/22/2002/21/2025 urina lysis , dipst ick Glucose Negati ve Not Available [address], [address], 02/21/2025 09:13:02 02/22/20 25 02/21/2025 urina lysis , dipst ick Appearance Clear Not Available [address], [address], 02/21/2025 09:13:02 02/22/2002/21/2025 urina lysis , dipst ick Color Yellow Not Available [address], [address], 02/21/2025 09:13:02 Result Notes None recorded. Problems Name Problem SNOMED Code Status Onset Date Resolution Date Notes Provider Name and Address Organization Details Recorded Time Diabetes mellitus 73879017 Active 2023 [facility] 13:57:49 Hypertensive disorder 25628117 Active 2023 [facility] 13:58:01 Problem Notes None recorded. Procedures Surgical History Date Name Laterality Status Provider Name and Address Organization Details Recorded Time 08/25/19 23 Colposcopy completed Leyla Banks [facility] 04/29/2024 13:55:30 08/25/19 15 Joint Replacement completed Leyla PERSAUD [facility] 04/29/2024 13:55:45 08/25/19 10 Arthroscopic Surgery completed Leyla Banks [facility] 04/29/2024 13:55:45 08/25/19 10 Knee Surgery completed Leylaedis Banks [facility] 04/29/2024 13:55:45 08/25/18 74 Tubal Ligation completed Leyla PERSAUD [facility] 04/29/2024 13:55:45 Imaging Results None recorded. Procedure Notes None recorded. Medical Equipment None Reported. Allergies Allergen ID Allergen Name Allergen Category Reaction Reaction Severity Criticality Documentation Date Start Date Code Code System Note Provider Name and Address Organization Details Recorded Time 179953 Substance with sulfonami de structure and antibacte rial mechanism of action (substanc e) medicatio n itching Not available high 04/29/2024 10845 8003 SNOMED [facility] 13:56:04 Medications Name Sig Start Date Stop [...] hours by oral route for 5 days. 03/05 completed Not Available Not Available Not Available cephalexin [...] 5 162.56 cm 18 /min 33.3 kg/m2 29120.9 2 g 97.9 [degF] 99 % 99 [...] Or The Highest Degree You Have Received? [id number] Information not available 04/29/2024 How Many Years [...] 04/29/2024 Are you able to care for yourself independently? Yes Information not available 04/29/2024 Do you or have you ever used e-cigarettes or vape? Never used electronic cigarettes Information not available 04/29/2024 What is your exercise level? Moderate Information not available 04/29/2024 Mental Status Question Answer Note LastModified by Organization D etails LastModified Time Do you feel stressed (tense, restless, nervous, or anxious, or unable to sleep at night)? [id number] Information not available 04/29/2024 Family History Relationship [...] [facility] 06/18/2024 09:51:11 Pneumococcal conjugate PCV20, polysaccharide [id number] conjugate, adjuvant, PF 4 completed Leyla Banks null, [place] - [facility] 06/18/2024 09:51:11 pneumococcal polysaccharide PPV23 4 completed Leyla Banks null, [place] - [facility] 06/18/2024 09:51:11 Td (adult), 2 Lf tetanus toxoid, preservative free, adsorbed 7 completed Leyla Banks null, [place] - [facility] 06/18/2024 09:51:11 Hep A, adult 9 completed Leylaedis Banks null, [place] - [facility] 06/18/2024 09:51:11 Hep A, adult 8 completed Leyla Banks null, [place] - [facility] 06/18/2024 09:51:11 Past Encounters Encounter ID Performer Location Encounter Start Date Encounter Closed Date Diagnosis/Indication Diagnosis SNOMED-CT Code Diagnosis ICD10 Code Diagnosis Note [id number] Vitor Bailey [address] [address] 01/31/2025 13:52:38 01/31/2025 14:20:26 Acute urinary tract infection 642683661 N39.0 increase fluidscran long juicewipe front to backvoid after [facility] not hold urineantib iotics as orderedcot ton underwearr eturn if symptoms worsen or do not improve Candidiasis of skin 4988 3006 B37.2 return for worsening of symptoms [id number] Vitor Bailey [address] [address] 02/14/2025 11:07:58 02/14/2025 11:57:06 Acute urinary tract infection 656175991 N39.0 increase fluidscran long juicewipe front to backvoid after [facility] not hold urineantib iotics as orderedcot ton underwearr eturn if symptoms worsen or do not improve Finding of fluid behind tympanic membrane 016484718 H65.93 continue meds [id number] Vitor Bailey[address] [address] 02/21/2025 09:08:03 02/21/2025 09:38:15 Acute urinary tract infection 130052719 N39.0 increase fluidscran long juicewipe front to [...] 02/21/2025 1 [place] Kassi Peres Michael [id number] Kassi Michael 02/21/2025 2 [employer] (MEDICARE SUPPLEMENT) Kassi Michael [id number] Kassi Michael OBGyn Episode No OBEpisode recorded.
--- OUTSIDE RECORDS SUMMARY | 2025-03-21 12:59 | XMS_ITS | Continuity of Care Document ---
Author Organization [facility] Address [address] [place] [address] Assessment No assessment recorded. Plan of Treatment Reminders Order Date Submit Date Provider Last Modified By Organization Details Last Modified Time Details Appointments None recorded. Lab urinalysis, dipstick 2024 025 [facility], [address] [place] [address], [address], 15:07:48 culture, urine 2024 025 [place] [facility], [address] , [facility], [place], [address], 5 05:06:31 Referral None recorded. Procedures None recorded. Surgeries None recorded. Imaging None recorded. Medication Orders cephalexin 500 mg capsule 2024 025 [facility], [address] [place] [address], [facility] [address], [place], [address], 5 11:52:38 ketoconazol e 2 % topical cream 2024 025 [facility], [facility], [facility], [place], [address], 5 15:15:07 Patient TargetsNo targets recorded. Patient InstructionsNo instructions recorded. Reason for Referral None Reported. Results Created Date Observation Date Name Description Value Unit Range Abnormal Flag Note LastModifiedBy Organization Detail LastModifiedTime 02/01/20 25 02/02/2025 URINE CULTU RE, ROUTI NE urine culture, routine Final report Not Available [facility] ([facility]) [address], [place], [address], 02/02/2025 05:06:31 02/01/2002/02/2025 URINE CULTU RE, ROUTI NE result 1 COMMEN T Mixed uroge nital celia 10,00 0-25, 000 colon y formi ng units per mL Not Available [facility] ([facility]) [address], [place], [address], 02/02/2025 05:06:31 02/01/2001/31/2025 urina lysis , dipst ick Leukocytes Trace Not Available [address], [address], 01/31/2025 14:19:02/01/20 25 01/31/2025 urina lysis , dipst ick Nitrite negati ve Not Available [address], [address], 01/31/2025 14:19:02/01/2001/31/2025 urina lysis , dipst ick Urobilinogen .2 Not Available Joe [address], [address], 01/31/2025 14:19:02/01/2001/31/2025 urina lysis , dipst ick Protein Negati ve Not Available [address], [address], 01/31/2025 14:19:06 02/01/2001/31/2025 urina lysis , dipst ick pH 6.0 Not Available [address], [address], 01/31/2025 14:19:06 02/01/20 25 01/31/2025 urina lysis , dipst ick Blood Negati ve Not Available [address], [address], 01/31/2025 14:19:06 02/01/20 25 01/31/2025 urina lysis , dipst ick Specific [place] 1.020 Not Available [address], [address], 01/31/2025 14:19:02/01/2001/31/2025 urina lysis , dipst ick Ketone Negati ve Not Available [address], [address], 01/31/2025 14:19:06 02/01/20 25 01/31/2025 urina lysis , dipst ick Bilirubin Negati ve Not Available [address], [address], 01/31/2025 14:19:06 02/01/20 25 01/31/2025 urina lysis , dipst ick Glucose Negati ve Not Available [address], [address], 01/31/2025 14:19:02/01/2001/31/2025 urina lysis , dipst ick Appearance Clear Not Available [address], [address], 01/31/2025 14:19:06 02/01/2001/31/2025 urina lysis , dipst ick Color Yellow Not Available [address], [address], 01/31/2025 14:19:06 Result Notes None recorded. Problems Name Problem SNOMED Code Status Onset Date Resolution Date Notes Provider Name and Address Organization Details Recorded Time Diabetes mellitus 10909188 Active 2023 [facility] 13:57:49 Hypertensive disorder 30709454 Active 2023 [facility] 13:58:01 Problem Notes None recorded. Procedures Surgical History Date Name Laterality Status Provider Name and Address Organization Details Recorded Time 08/25/19 23 Colposcopy completed Leyla [facility]UD [facility] 04/29/2024 13:55:30 08/25/19 15 Joint Replacement completed Leyla PERSAUD [facility] 04/29/2024 13:55:45 08/25/19 10 Arthroscopic Surgery completed Leyla PERSAUD [facility] 04/29/2024 13:55:45 08/25/19 10 Knee Surgery completed Leyla PERSAUD [facility] 04/29/2024 13:55:45 08/25/18 74 Tubal Ligation completed Leyla PERSAUD [facility] 04/29/2024 13:55:45 Imaging Results None recorded. Procedure Notes None recorded. Medical Equipment None Reported. Allergies Allergen ID Allergen Name Allergen Category Reaction Reaction Severity Criticality Documentation Date Start Date Code Code System Note Provider Name and Address Organization Details Recorded Time 068620 Substance with sulfonami de structure and antibacte rial mechanism of action (substanc e) medicatio n itching Not available high 04/29/2024 51419 8003 SNOMED [facility] 13:56:04 Medications Name Sig Start [...] Arterial blood by Pulse oximetry Respiratory rate Pain severity - 0-10 verbal numeric rating [Score] - Reported Systolic And Diastolic Provider Name and Address Organization Details Last Updated DateTime 162.56 cm 33.1 kg/m2 18751.3 3 g 89 /min 98 % 98 % 18 /min 0 110/78 mm[Hg] Leyla Banks [place] - [facility] 14:04:27 [...] Or The Highest Degree You Have Received? [id number] Information not available 04/29/2024 How Many Years [...] anxious, or unable to sleep at night)? [id number] Information not available 04/29/2024 Family History Relationship Description Onset Age of this Age Resolved Age Notes LastModified by Organization Details LastModified Time Daughter Diabetes mellitus [email or web address] Not available 2023 13:55:25 Daughter Kidney disease cbuckler Not available 2023 13:55:25 Unspecified Relation Arthritis cbuckler Not available 2023 13:55:25 Unspecified Relation Diabetes mellitus cbuckler Not available 2023 13:55:25 Medical History Condition Response Obesity Y Arthritis Y Ear or Hearing Problems Y Skin Problems Y Diabetes Y Hypertension Y Gynecological History Statement/Question Response [...] adjuvanted, trivalent, PF 4 completed Leyla ashton, [facility] 06/18/2024 09:51:10 zoster recombinant 3 completed Leyla ashton, [facility] 06/18/2024 09:51:11 Influenza, adjuvanted, quadrivalent, PF 3 completed Leyla Banks null, [facility] 06/18/2024 09:51:11 COVID-19 vaccine, vector-nr, rS-Ad26, PF, 0.5 mL 1 completed Leyla Banks null, [place] - [facility] 06/18/2024 09:51:11 Pneumococcal conjugate PCV20, polysaccharide [id number] conjugate, adjuvant, PF 4 completed Leyla ashton, [place] - [facility] 06/18/2024 09:51:11 pneumococcal polysaccharide PPV23 4 completed Le[place] - [facility] 06/18/2024 09:51:11 Td (adult), 2 Lf tetanus toxoid, preservative free, adsorbed 7 completed Leyla [place], [place] - [facility] 06/18/2024 09:51:11 Hep A, adult 9 completed Leyla [place] - [facility] 06/18/2024 09:51:11 Hep A, adult 8 completed Leyla ashton, [place] - [facility] 06/18/2024 09:51:11 Past Encounters Encounter ID Performer Location Encounter Start Date Encounter Closed Date Diagnosis/Indication Diagnosis SNOMED-CT Code Diagnosis ICD10 Code Diagnosis Note [id number] Vitor Bailey APRN [facility] [address] [place] [address] 01/31/2025 13:52:38 01/31/2025 14:20:26 Acute urinary tract infection 370339206 N39.0 increase fluidscran long juicewipe front to [...] 01/31/2025 1 [place] Kassi Peres Michael [id number] Kassi Michael 01/31/2025 2 [employer] (MEDICARE SUPPLEMENT) Kassi Michael [id number] Kassi Michael OBGyn Episode No OBEpisode recorded.
--- OUTSIDE RECORDS SUMMARY | 2025-03-21 12:59 | XMS_ITS | Continuity of Care Document ---
[facility] Organization [facility] Address [address] [place] [address] Assessment No assessment recorded. Plan of Treatment Reminders Order Date Submit Date Provider Last Modified By Organization Details Last Modified Time Details Appointments None recorded. Lab urinalysis, dipstick 2024 025 [facility], [address] [place] [address], [id number], 12:00:59 culture, urine 2024 025 [facility], [address] [facility], [facility], [place], [address], 06:08:58 Referral None recorded. Procedures None recorded. Surgeries None recorded. Imaging None recorded. Medication Orders levofloxaci n 500 mg tablet 2024 025 [facility], [address], [address], [place], [address], 09:34:48 Patient TargetsNo targets recorded. Patient InstructionsNo instructions recorded. Reason for Referral None Reported. Results Created Date Observation Date Name Description Value Unit Range Abnormal Flag Note LastModifiedBy Organization Detail LastModifiedTime 02/01/2002/02/2025 URINE CULTU RE, [place] NE urine culture, routine Final report Not Available [facility] ([facility]) [address], [place], [address], 02/02/2025 05:06:31 02/01/20 02/02/2025 URINE CULTU RE, ROUTI NE result 1 COMMEN T Mixed uroge nital celia 10,00 0-25, 000 colon y formi ng units per mL Not Available [facility] ([facility]) [address], [place], [address], 02/02/2025 05:06:31 02/01/2001/31/2025 urina lysis , dipst ick Leukocytes Trace Not Available [address], [address], 01/31/2025 14:19:06 02/01/20 25 01/31/2025 urina lysis , dipst ick Nitrite negati ve Not Available [address], [address], 01/31/2025 14:19:02/01/20 25 01/31/2025 urina lysis , dipst ick Urobilinogen .2 Not Available Joe [address], [address], 01/31/2025 14:19:06 02/01/20 25 01/31/2025 urina lysis , dipst ick Protein Negati ve Not Available [address], [address], 01/31/2025 14:19:02/01/2001/31/2025 urina lysis , dipst ick pH 6.0 Not Available [address], [address], 01/31/2025 14:19:06 02/01/20 25 01/31/2025 urina lysis , dipst ick Blood Negati ve Not Available [address], [address], 01/31/2025 14:19:06 02/01/20 25 01/31/2025 urina lysis , dipst ick Specific [place] 1.020 Not Available [address], [address], 01/31/2025 14:19:02/01/2001/31/2025 urina lysis , dipst ick Ketone Negati ve Not Available [address], [address], 01/31/2025 14:19:02/01/2001/31/2025 urina lysis , dipst ick Bilirubin Negati ve Not Available [address], [address], 01/31/2025 14:19:02/01/2001/31/2025 urina lysis , dipst ick Glucose Negati ve Not Available [address], [address], 01/31/2025 14:19:02/01/2001/31/2025 urina lysis , dipst ick Appearance Clear Not Available [address], [address], 01/31/2025 14:19:02/01/2001/31/2025 urina lysis , dipst ick Color Yellow Not Available [address], [address], 01/31/2025 14:19:06 02/15/2002/16/2025 URINE CULTU RE, ROUTI NE urine culture, routine Final report Not Available [facility] ([facility]) [address], [place], [address], 02/16/2025 06:08:58 02/15/20 25 02/16/2025 URINE CULTU RE, ROUTI NE result 1 COMMEN T Mixed uroge nital celia Less than 10,00 0 colon ies/m L Not Available [facility] ([facility]) [address], [place], [address], 02/16/2025 06:08:58 02/15/20 25 02/14/2025 urina lysis , dipst ick Leukocytes Large Not Available [address], [address], 02/14/2025 11:52:32 02/15/20 25 02/14/2025 urina lysis , dipst ick Nitrite negati ve Not Available [address], [address], 02/14/2025 11:52:32 02/15/20 25 02/14/2025 urina lysis , dipst ick Urobilinogen .2 Not Available Joe [address], [address], 02/14/2025 11:52:32 02/15/20 25 02/14/2025 urina lysis , dipst ick Protein 30 Not Available [address], [address], 02/14/2025 11:52:32 02/15/20 25 02/14/2025 urina lysis , dipst ick pH 6.0 Not Available [address], [address], 02/14/2025 11:52:32 02/15/20 25 02/14/2025 urina lysis , dipst ick Blood Small Not Available [address], [address], 02/14/2025 11:52:32 02/15/20 25 02/14/2025 urina lysis , dipst ick Specific [place] 1.015 Not Available [address], [address], 02/14/2025 11:52:32 02/15/20 25 02/14/2025 urina lysis , dipst ick Ketone Negati ve Not Available [address], [address], 02/14/2025 11:52:32 02/15/20 25 02/14/2025 urina lysis , dipst ick Bilirubin Negati ve Not Available [address], [address], 02/14/2025 11:52:32 02/15/20 25 02/14/2025 urina lysis , dipst ick Glucose Negati ve Not Available [address], [address], 02/14/2025 11:52:32 02/15/20 25 02/14/2025 urina lysis , dipst ick Appearance Clear Not Available [address], [address], 02/14/2025 11:52:32 02/15/20 25 02/14/2025 urina lysis , dipst ick Color Yellow Not Available [address], [address], 02/14/2025 11:52:32 Result Notes None recorded. Problems Name Problem SNOMED Code Status Onset Date Resolution Date Notes Provider Name and Address Organization Details Recorded Time Diabetes mellitus 61415310 Active 2023 [facility] 13:57:49 Hypertensive disorder 23285834 Active 2023 [facility] 13:58:01 Problem Notes None recorded. Procedures Surgical History Date Name Laterality Status Provider Name and Address Organization Details Recorded Time 08/25/19 23 Colposcopy completed Leyla Banks [facility] 04/29/2024 13:55:30 08/25/19 15 Joint Replacement completed Leyla PERSAUD [facility] 04/29/2024 13:55:45 08/25/19 10 Arthroscopic Surgery completed Leyla PERSAUD [facility] 04/29/2024 13:55:45 08/25/19 10 Knee Surgery completed Leyla Banks [facility] 04/29/2024 13:55:45 08/25/18 74 Tubal Ligation completed Leyla PERSAUD [facility] 04/29/2024 13:55:45 Imaging Results None recorded. Procedure Notes None recorded. Medical Equipment None Reported. Allergies Allergen ID Allergen Name Allergen Category Reaction Reaction Severity Criticality Documentation Date Start Date Code Code System Note Provider Name and Address Organization Details Recorded Time 352341 Substance with sulfonami de structure and antibacte rial mechanism of action (substanc e) medicatio n itching Not available high 04/29/2024 38988 8003 SNOMED [facility] O[place] [facility] 13:56:04 Medications Name Sig Start Date Stop [...] Available Not Available Not Available amoxicillin 875 mg-demiassiu m clavulanate 125 mg tablet 04/29 completed [...] height Body mass index (BMI) Body weight Oxygen saturation Oxygen saturation in Arterial blood by Pulse oximetry Heart rate Respiratory rate Pain severity - 0-10 verbal numeric rating [Score] - Reported Systolic And Diastolic Provider Name and Address Organization Details Last Updated DateTime 162.56 cm 33.3 kg/m2 69920.9 2 g 98 % 98 % 71 /min 20 /min 0 148/90 mm[Hg] Leyla Jocelyn [place] - [facility] 11:51:58 Social History Question Answer Notes LastModified by [...] Or The Highest Degree You Have Received? [id number] Information not available 04/29/2024 How Many Years [...] anxious, or unable to sleep at night)? RX7897-5 Information not available 04/29/2024 Family History Relationship [...] Influenza, adjuvanted, trivalent, PF 4 completed Leyla Jocelyn null, [place] - [facility] 06/18/2024 09:51:10 zoster recombinant 3 completed Leyla Joc[place] - [facility] 06/18/2024 09:51:11 Influenza, adjuvanted, quadrivalent, PF 3 completed Leyla Joc[place], [place] - [facility] 06/18/2024 09:51:11 COVID-19 vaccine, vector-nr, rS-Ad26, PF, 0.5 mL 1 completed Leyla Banks null, [place] - [facility] 06/18/2024 09:51:11 Pneumococcal conjugate PCV20, polysaccharide [id number] conjugate, adjuvant, PF 4 completed Leyla Joc[place] - [facility] 06/18/2024 09:51:11 pneumococcal polysaccharide PPV23 4 completed Leyla Joc[place] - [facility] 06/18/2024 09:51:11 Td (adult), 2 Lf tetanus toxoid, preservative free, adsorbed 7 completed Leyla Banks null, [place] - [facility] 06/18/2024 09:51:11 Hep A, adult 9 completed Leyla Jocelyn null, [place] - [facility] 06/18/2024 09:51:11 Hep A, adult 8 completed Leyla Jocelyn null, [place] - [facility] 06/18/2024 09:51:11 Past Encounters Encounter ID Performer Location Encounter Start Date Encounter Closed Date Diagnosis/Indication Diagnosis SNOMED-CT Code Diagnosis ICD10 Code Diagnosis Note [id number] Vitor Bailey APRN [address] [address] 01/31/2025 13:52:38 01/31/2025 14:20:26 Acute urinary tract infection 740276932 N39.0 increase fluidscran long juicewipe front to backvoid after [facility] not hold urineantib iotics as orderedcot ton underwearr eturn if symptoms worsen or do not improve Candidiasis of skin 4988 3006 B37.2 return for worsening of symptoms [id number] Vitor Bailey APRN [address] [address] 02/14/2025 11:07:58 02/14/2025 11:57:06 Acute urinary tract infection 871413772 N39.0 increase fluidscran long juicewipe front to backvoid after [facility] not hold urineantib iotics as orderedcot ton underwearr [place]urn if symptoms worsen or do not improve Finding of fluid behind tympanic membrane 580752568 H65.93 continue meds Health Concerns Section Related Observation LastModified by Organization Detai ls LastModified Time None Recorded Concern Status LastModified by Organization Details LastModified Time None Recorded Payers Encounter Date Sequence Insurance Name Policy Number Policy Thomas Covered Member ID Thomas Member ID Guarantor Name 02/14/2025 1 [place] Kassi Rodriguez [id number] Kassi Rodriguez 02/14/2025 2 [employer] (MEDICARE SUPPLEMENT) Kassi Rodriguez [id number] Kassi Rodriguez OBGyn Episode No OBEpisode recorded.
--- OUTSIDE RECORDS SUMMARY | 2025-03-21 12:59 | XMS_ITS | Clinical Summary ---
Author Organization Healthcare Address [address] [place] [address] Care Team Providers Care Stock Digger Name Role Phone Unavailable Primary Care Provider [...] 2006 UKY-Zoster Vaccines (1 of 2) 2006 [id number] Vaccine (1 - 20 24-25 season) 2024 [...] complete this topic Insurance [employer] [address] [place] [id number]
== END 2025-03-17 23:59 ==
LOC: LAB.DROPOF 03-21 12:53
PROVIDERS: PCP Nurse Practitioner Family; Visit Provider Nurse Practitioner Family
DX: N39.0 Urinary tract infection, site not specified (principal)
CPT/HCPCS: 87086

== ENCOUNTER 2025-03-22 08:19 | Outpatient (CLI) | payer MEDICARE, SELFPAY ==
--- OUTSIDE RECORDS SUMMARY | 2025-03-22 08:25 | XMS_ITS | Clinical Summary ---
Author Organization [facility] Address [address] [place] [address] Care Team Providers Care Global Expansion Sales Director Name Role Phone Suyapa Gracia APRN Primary Care Provider [phone] Social History Tobacco Use Types Packs/Day Years [...] VACCINE 05/25/2025 Insurance MEDICARE A [facility] Care Teams Global Expansion Sales Director Relationship Specialty Start Date End Date Suyapa Gracia APRN PCP - General Internal Medicine 12/05/22
--- OUTSIDE RECORDS SUMMARY | 2025-03-22 08:25 | XMS_ITS | Clinical Summary ---
Author Organization Healthcare Address [address] [place] [address] Care Team Providers Care Collar Tacker Name Role Phone Unavailable Primary Care Provider [...] 2006 UKY-Zoster Vaccines (1 of 2) 2006 [id number]-[id number] Vaccine (1 - 20 24-25 season) 2024 [...] complete this topic Insurance [employer] [address] [place] [id number]
--- OUTSIDE RECORDS SUMMARY | 2025-03-22 08:25 | XMS_ITS | Data Portability ---
Author Organization [facility] Address [address] [place] [address] Assessment No assessment recorded. Plan of Treatment Reminders Order Date Submit Date Provider Last Modified By Organization Details Last Modified Time Details Appointments None recorded. Lab urinalysis, dipstick 2024 025 [facility], [address] [place] [address], [id number], 5 09:36:28 culture, urine 2024 025 [facility], [address], [place] F, [place], [address], 5 04:06:26 urinalysis, dipstick 2024 025 [facility], [address] [place] [address], [phone], 5 12:00:59 culture, urine 2024 025 [facility], [address], [place] F, [place], [address], 5 06:08:58 urinalysis, dipstick 2024 025 [facility], [address] [place] [address], [address], 5 15:07:48 culture, urine 2024 025 [facility], [address], [place] F, [place], [address], 5 05:06:31 urinalysis, dipstick 2023 024 [facility], [address] [place] [address], [address], 4 13:54:21 urinalysis, dipstick 2023 024 [facility], [address] [place] [address], [address], 4 10:37:29 culture, urine 2023 024 [facility], [address], [place] F, [place], [address], 4 22:06:00 Referral None recorded. Procedures None recorded. Surgeries None recorded. Imaging None recorded. Medication Orders Macrobid 100 mg capsule 2024 025 [facility], [address] [place] [address], [address], [address], 5 05:02:14 levofloxaci n 500 mg tablet 2024 025 [facility], [address] [place] [address] 2, [place], [address], 5 09:34:48 cephalexin 500 mg capsule 2024 025 [facility], [address] [place] [address], [place], [address], 5 11:52:38 ketoconazol e 2 % topical cream 2024 025 [facility], [address] [place] [address], [address], [address], 5 15:15:07 cephalexin 500 mg capsule 2023 024 [facility], [address] [place] [address], [address], [place], [address], 5 11:50:11 Zyrtec 10 mg tablet 2023 024 [facility], [address] [place] [address], [facility] 2, [place], [address], 4 13:27:11 Patient TargetsNo targets recorded. Patient InstructionsNo instructions recorded. Reason for Referral None Reported. Results Created Date Observation Date Name Description Value Unit Range Abnormal Flag Note LastModifiedBy Organization Detail LastModifiedTime 06/18/2006/22/2024 URINE CULTU RE, ROUTI NE urine culture, routine Final report abnormal Not Available [facility] ([facility]) [address] [facility], [place], [address], 06/22/2024 22:06:00 06/18/2006/22/2024 URINE CULTU RE, ROUTI NE result 1 Escher ichia coli abnormal [...] ng units per mL Not Available [facility] ([facility]) [address] [facility], [place], [address], 06/22/2024 22:06:00 06/18/20 24 06/22/2024 URINE CULTU RE, ROUTI NE antimicrobia l [...] thopr im/Cruz lfa S Not Available [facility] ([facility]) [address] [facility], [place], [address], 06/22/2024 22:06:00 06/18/2006/18/2024 urina lysis , dipst ick Leukocytes Large Not Available [address], [address], 06/18/2024 09:52:28 06/18/2006/18/2024 urina lysis , dipst ick Nitrite negati ve Not Available [address], [address], 06/18/2024 09:52:28 06/18/2006/18/2024 urina lysis , dipst ick Urobilinogen .2 Not Available Joe [address], [address], 06/18/2024 09:52:28 06/18/2006/18/2024 urina lysis , dipst ick Protein 100 Not Available [address], [address], 06/18/2024 09:52:28 06/18/20 24 06/18/2024 urina lysis , dipst ick pH 7.0 Not Available [address], [address], 06/18/2024 09:52:28 06/18/2006/18/2024 urina lysis , dipst ick Blood Non-He molyze d: Trace Not Available [address], [address], 06/18/2024 09:52:28 06/18/2006/18/2024 urina lysis , dipst ick Specific [place] 1.020 Not Available [address], [address], 06/18/2024 09:52:28 06/18/2006/18/2024 urina lysis , dipst ick Ketone Negati ve Not Available [address], [address], 06/18/2024 09:52:28 06/18/2006/18/2024 urina lysis , dipst ick Bilirubin Negati ve Not Available [address], [address], 06/18/2024 09:52:28 06/18/2006/18/2024 urina lysis , dipst ick Glucose Negati ve Not Available [address], [address], 06/18/2024 09:52:28 06/18/2006/18/2024 urina lysis , dipst ick Appearance Slight ly Cloudy Not Available [address], [address], 06/18/2024 09:52:28 06/18/2006/18/2024 urina lysis , dipst ick Color Dark Yellow Not Available [address], [address], 06/18/2024 09:52:28 07/12/20 24 07/12/2024 urina lysis , dipst ick Leukocytes Negati ve Not Available [address], [address], 07/12/2024 12:56:23 07/12/20 24 07/12/2024 urina lysis , dipst ick Nitrite negati ve Not Available [address], [address], 07/12/2024 12:56:23 07/12/20 24 07/12/2024 urina lysis , dipst ick Urobilinogen .2 Not Available Joe [address], [address], 07/12/2024 12:56:23 07/12/20 24 07/12/2024 urina lysis , dipst ick Protein Negati ve Not Available [address], [address], 07/12/2024 12:56:23 07/12/20 24 07/12/2024 urina lysis , dipst ick pH 7.0 Not Available [address], [address], 07/12/2024 12:56:23 07/12/20 24 07/12/2024 urina lysis , dipst ick Blood Negati ve Not Available [address], [address], 07/12/2024 12:56:23 07/12/20 24 07/12/2024 urina lysis , dipst ick Specific [place] 1.010 Not Available [address], [address], 07/12/2024 12:56:23 07/12/20 24 07/12/2024 urina lysis , dipst ick Ketone Negati ve Not Available [address], [address], 07/12/2024 12:56:23 07/12/20 24 07/12/2024 urina lysis , dipst ick Bilirubin Negati ve Not Available [address], [address], 07/12/2024 12:56:23 07/12/20 24 07/12/2024 urina lysis , dipst ick Glucose Negati ve Not Available [address], [address], 07/12/2024 12:56:23 07/12/20 24 07/12/2024 urina lysis , dipst ick Appearance Clear Not Available [address], [address], 07/12/2024 12:56:23 07/12/20 24 07/12/2024 urina lysis , dipst ick Color Yellow Not Available [address], [address], 07/12/2024 12:56:23 02/01/20 25 02/02/2025 URINE CULTU RUSH GOLDEN urine culture, routine Final report Not Available [facility] ([facility]) [address] [facility], [place], [address], 02/02/2025 05:06:31 02/01/20 25 02/02/2025 URINE CULTU RE, ROUTI NE result 1 COMMEN T Mixed uroge nital celia 10,00 0-25, 000 colon y formi ng units per mL Not Available [facility] ([facility]) [address] [facility], [place], [address], 02/02/2025 05:06:31 02/01/20 25 01/31/2025 urina lysis , dipst ick Leukocytes Trace Not Available [address], [address], 01/31/2025 14:19:06 02/01/20 25 01/31/2025 urina lysis , dipst ick Nitrite negati ve Not Available [address], [address], 01/31/2025 14:19:02/01/2001/31/2025 urina lysis , dipst ick Urobilinogen .2 Not Available Joe [address], [address], 01/31/2025 14:19:02/01/2001/31/2025 urina lysis , dipst ick Protein Negati ve Not Available [address], [address], 01/31/2025 14:19:02/01/20 25 01/31/2025 urina lysis , dipst ick pH 6.0 Not Available [address], [address], 01/31/2025 14:19:02/01/20 25 01/31/2025 urina lysis , dipst ick Blood Negati ve Not Available [address], [address], 01/31/2025 14:19:06 02/01/2001/31/2025 urina lysis , dipst ick Specific [place] 1.020 Not Available [address], [address], 01/31/2025 14:19:06 02/01/2001/31/2025 urina lysis , dipst ick Ketone Negati ve Not Available [address], [address], 01/31/2025 14:19:06 02/01/2001/31/2025 urina lysis , dipst ick Bilirubin Negati ve Not Available [address], [address], 01/31/2025 14:19:02/01/2001/31/2025 urina lysis , dipst ick Glucose Negati ve Not Available [address], [address], 01/31/2025 14:19:06 02/01/2001/31/2025 urina lysis , dipst ick Appearance Clear Not Available [address], [address], 01/31/2025 14:19:02/01/2001/31/2025 urina lysis , dipst ick Color Yellow Not Available [address], [address], 01/31/2025 14:19:06 02/15/2002/16/2025 URINE CULTU RE, ROUTI NE urine culture, routine Final report Not Available [facility] ([facility]) [address] [facility], [place], [address], 02/16/2025 06:08:58 02/15/2002/16/2025 URINE CULTU RE, ROUTI NE result 1 COMMEN T Mixed uroge nital celia Less than 10,00 0 colon ies/m L Not Available [facility] ([facility]) [address], [place], [address], 02/16/2025 06:08:58 02/15/20 25 02/14/2025 urina lysis , dipst ick Leukocytes Large Not Available [address], [address], 02/14/2025 11:52:32 02/15/20 25 02/14/2025 urina lysis , dipst ick Nitrite negati ve Not Available [address], [address], 02/14/2025 11:52:32 02/15/20 25 02/14/2025 urina lysis , dipst ick Urobilinogen .2 Not Available Joe [address], [address], 02/14/2025 11:52:32 02/15/20 25 02/14/2025 urina lysis , dipst ick Protein 30 Not Available [address], [address], 02/14/2025 11:52:32 02/15/20 25 02/14/2025 urina lysis , dipst ick pH 6.0 Not Available [address], [address], 02/14/2025 11:52:32 02/15/20 25 02/14/2025 urina lysis , dipst ick Blood Small Not Available [address], [address], 02/14/2025 11:52:32 02/15/20 25 02/14/2025 urina lysis , dipst ick Specific [place] 1.015 Not Available [address], [address], 02/14/2025 11:52:32 02/15/20 25 02/14/2025 urina lysis , dipst ick Ketone Negati ve Not Available [address], [address], 02/14/2025 11:52:32 02/15/20 25 02/14/2025 urina lysis , dipst ick Bilirubin Negati ve Not Available [address], [address], 02/14/2025 11:52:32 02/15/20 25 02/14/2025 urina lysis , dipst ick Glucose Negati ve Not Available [address], [address], 02/14/2025 11:52:32 02/15/20 25 02/14/2025 urina lysis , dipst ick Appearance Clear Not Available [address], [address], 02/14/2025 11:52:32 02/15/20 25 02/14/2025 urina lysis , dipst ick Color Yellow Not Available [address], [address], 02/14/2025 11:52:32 02/22/20 25 02/23/2025 URINE CULTU RE, ROUTI NE urine culture, routine Final report Not Available [facility] ([facility]) [address] [facility], [place], [address], 02/23/2025 04:06:26 02/22/20 25 02/23/2025 URINE CULTU RE, ROUTI NE result 1 COMMEN T Cultu re shows less than 10,00 0 colon y formi ng units of bacte june per manuela liter of urine . This colon y count is not gener ally consi dered to be clini tammy signi anai t. Not Available [facility] ([facility]) [address] [facility], [place], [address], 02/23/2025 04:06:26 02/22/20 25 02/21/2025 urina lysis , dipst ick Leukocytes Trace Not Available [address], [address], 02/21/2025 09:13:02 02/22/20 25 02/21/2025 urina lysis , dipst ick Nitrite negati ve Not Available [address], [address], 02/21/2025 09:13:02 02/22/20 25 02/21/2025 urina lysis , dipst ick Urobilinogen .2 Not Available Joe [address], [address], 02/21/2025 09:13:02 02/22/20 25 02/21/2025 urina lysis , dipst ick Protein Negati ve Not Available [address], [address], 02/21/2025 09:13:02 02/22/20 25 02/21/2025 urina lysis , dipst ick pH 6.0 Not Available [address], [address], 02/21/2025 09:13:02 02/22/20 25 02/21/2025 urina lysis , dipst ick Blood Negati ve Not Available [address], [address], 02/21/2025 09:13:02 02/22/20 25 02/21/2025 urina lysis , dipst ick Specific [place] 1.015 Not Available [address], [address], 02/21/2025 09:13:02 02/22/20 25 02/21/2025 urina lysis , dipst ick Ketone Negati ve Not Available [address], [address], 02/21/2025 09:13:02 02/22/20 25 02/21/2025 urina lysis , dipst ick Bilirubin Negati ve Not Available [address], [address], 02/21/2025 09:13:02 02/22/20 25 02/21/2025 urina lysis , dipst ick Glucose Negati ve Not Available [address], [address], 02/21/2025 09:13:02 02/22/20 25 02/21/2025 urina lysis , dipst ick Appearance Clear Not Available [address], [address], 02/21/2025 09:13:02 02/22/20 25 02/21/2025 urina lysis , dipst ick Color Yellow Not Available [address], [address], 02/21/2025 09:13:02 Result Notes None recorded. Problems Name Problem SNOMED Code Status Onset Date Resolution Date Notes Provider Name and Address Organization Details Recorded Time Diabetes mellitus 57298963 Active 2023 [facility] Osorio [facility] 13:57:49 Hypertensive disorder 73532830 Active 2023 CORI Osorio [facility] 13:58:01 Problem Notes None recorded. Procedures Surgical History Date Name Laterality Status Provider Name and Address Organization Details Recorded Time 08/25/19 23 Colposcopy completed Leyla PERSAUD [facility] 04/29/2024 13:55:30 08/25/19 15 Joint Replacement completed Leyla PERSAUD [facility] 04/29/2024 13:55:45 08/25/19 10 Arthroscopic Surgery completed Leyla PERSAUD [facility] 04/29/2024 13:55:45 08/25/19 10 Knee Surgery completed Leyla PERSAUD [facility] 04/29/2024 13:55:45 08/25/18 74 Tubal Ligation completed Leyla PERSAUD [facility] 04/29/2024 13:55:45 Imaging Results None recorded. Procedure Notes None recorded. Medical Equipment None Reported. Allergies Allergen ID Allergen Name Allergen Category Reaction Reaction Severity Criticality Documentation Date Start Date Code Code System Note Provider Name and Address Organization Details Recorded Time 653674 Substance with sulfonami de structure and antibacte rial mechanism of action (substanc e) medicatio n itching Not available high 04/29/2024 00356 8003 SNOMED CORI Osorio [facility] 13:56:04 Medications Name Sig Start Date Stop [...] Updated DateTime 5 162.56 cm 33.1 kg/m2 43526.3 3 g 89 /min 98 % 98 % 18 /min 0 110/78 mm[Hg] Leyla Banks [place] - [facility] 5 14:04:27 Date Recorded Body height Body mass index (BMI) Body weight Oxygen saturation Oxygen saturation in Arterial blood by Pulse oximetry Heart rate Respiratory rate Pain severity - 0-10 verbal numeric rating [Score] - Reported Systolic And Diastolic Provider Name and Address Organization Details Last Updated DateTime 5 162.56 cm 33.3 kg/m2 29167.9 2 g 98 % 98 % 71 /min 20 /min 0 148/90 mm[Hg] Leyla Banks [place] - [facility] 5 11:51:58 Date Recorded Body height Respiratory rate Body mass index (BMI) Body weight Body temperature Oxygen saturation Oxygen saturation in Arterial blood by Pulse oximetry Heart rate Systolic And Diastolic Provider Name and Address Organization Details Last Updated DateTime 5 162.56 cm 18 /min 33.3 kg/m2 21066.9 2 g 97.9 [degF] 99 % 99 % 62 /min 154/86 mm[Hg] Lauryn Stears [place] - [facility] 5 09:15:33 Date Recorded Body height Body mass index (BMI) Body weight Heart rate Body temperature Oxygen saturation Oxygen saturation in Arterial blood by Pulse oximetry Respiratory rate Pain severity - 0-10 verbal numeric rating [Score] - Reported Systolic And Diastolic Provider Name and Address Organization Details Last Updated DateTime 4 162.56 cm 32.3 kg/m2 39252.0 7 g 87 /min 97 [degF] 98 % 98 % 18 /min 0 120/82 mm[Hg] Leyla Banks [place] - [facility] 4 09:59:33 Date Recorded Body height Body mass index (BMI) Body weight Body temperature Heart rate Oxygen saturation Oxygen saturation in Arterial blood by Pulse oximetry Respiratory rate Pain severity - 0-10 verbal numeric rating [Score] - Reported Systolic And Diastolic Provider Name and Address Organization Details Last Updated DateTime 4 162.56 cm 32.8 kg/m2 87256.1 4 g 98 [degF] 72 /min 98 % 98 % 18 /min 0 118/80 mm[Hg] Leyla Banks [place] - [facility] 4 [...] Or The Highest Degree You Have Received? [id number] Information not available 04/29/2024 How Many Years [...] anxious, or unable to sleep at night)? [id number] Information not available 04/29/2024 Family History Relationship [...] trivalent, PF 4 completed Leyla [place], [place] - [facility] 06/18/2024 09:51:10 zoster recombinant 3 completed Leyla Joc[place] - [facility] 06/18/2024 09:51:11 Influenza, adjuvanted, quadrivalent, PF 3 completed Leyla [place] - [facility] 06/18/2024 09:51:11 COVID-19 vaccine, vector-nr, rS-Ad26, PF, 0.5 mL 1 completed Le[place] - [facility] 06/18/2024 09:51:11 Pneumococcal conjugate PCV20, polysaccharide QVB377 conjugate, adjuvant, PF 4 completed Leyla [place] - [facility] 06/18/2024 09:51:11 pneumococcal polysaccharide PPV23 4 completed Leyla [place] - [facility] 06/18/2024 09:51:11 Td (adult), 2 Lf tetanus toxoid, preservative free, adsorbed 7 completed Leyla [place] - [facility] 06/18/2024 09:51:11 Hep A, adult 9 completed Leyla Jocelyn null, [place] - [facility] 06/18/2024 09:51:11 Hep A, adult 8 completed Leyla [place] - [facility] 06/18/2024 09:51:11 Past Encounters Encounter ID Performer Location Encounter Start Date Encounter Closed Date Diagnosis/Indication Diagnosis SNOMED-CT Code Diagnosis ICD10 Code Diagnosis Note [id number] Vitor Bailey APRN [address] [address] 04/29/2024 13:19:09 04/29/2024 14:31:42 Acute left otitis media 454827845 H66.92 if symptoms increase or worsen return [id number] Vitor Bailey [place] [id number] 1 06/18/2024 09:43:21 06/18/2024 10:38:33 Acute urinary tract infection 176746031 N39.0 increase fluidscran long juicewipe front to backvoid after [facility] not hold urineantib iotics as orderedcot ton underwearr eturn if symptoms worsen or do not improve Ingrowing nail of toe of right foot 5482521062 9490767 L60.0 Seasonal a llergic rhinitis 871141952 J30.2 [id number] Vitor Bailey [place] [id number] 07/12/2024 12:56:26 07/12/2024 13:57:35 Increased frequency of urination 528680537 R35.0 urinalysis clear.incr ease fluidsretu rn if needed Dysuria 38939677 R30.0 urinalysis clear.incr ease fluidsretu rn if needed [id number] [facility] [address] [address] 01/31/2025 13:52:38 01/31/2025 14:20:26 Acute urinary tract infection 760188147 N39.0 increase fluidscran long juicewipe front to backvoid after [facility] not hold urineantib iotics as orderedcot ton underwearr eturn if symptoms worsen or do not improve Candidiasis of skin 4988 3006 B37.2 return for worsening of symptoms [id number] [facility] [address] 02/14/2025 11:07:58 02/14/2025 11:57:06 Acute urinary tract infection 820604871 N39.0 increase fluidscran long juicewipe front to backvoid after [facility] not hold urineantib iotics as orderedcot ton underwearr eturn if symptoms worsen or do not improve Finding of fluid behind tympanic membrane 700582402 H65.93 continue meds [id number] Vitor Bailey APRN [facility] [address] [place] [address] 02/21/2025 09:08:03 02/21/2025 09:38:15 Acute urinary tract infection 648519705 N39.0 increase fluidscran long juicewipe front to [...] Guarantor Name 01/31/2025 1 [place] Kassi L Michael [id number] Kassi Michael 02/21/2025 2 [employer] (MEDICARE SUPPLEMENT) Kassi Michael [id number] Kassi Michael 01/31/2025 [employer] - [place] - RHC-F[place] (MEDICARE) Kassi Michael [id number] Kassi Michael OBGyn Episode No OBEpisode recorded.
== END 2025-03-22 23:59 | disposition home or self-care (01) ==
PROVIDERS: PCP Nurse Practitioner Family; Visit Provider Nurse Practitioner Family
DX: R82.90 Unspecified abnormal findings in urine (principal)
CPT/HCPCS: 36415; 87086

== ENCOUNTER 2025-05-30 11:00 | Outpatient (CLI) | payer MEDICARE, SELFPAY ==
[2025-05-30 14:23] LABS: Microscopic,Cath URINE MICROSCOPIC (MICROSCOPIC)
[2025-05-30 20:53] LABS: Appearance,Urine/Cath CLEAR (Clear); Blood, Urine/Cath TRACE-I (Negative); Color,Urine/Cath YELLOW (Yellow); Glucose,Urine/Cath (UA) Negative (Negative); Ketones,Urine/Cath Negative (Negative); Leukocyte Esterase,Cath 2+ (Negative); Nitrate,Cath Negative (Negative); PH,Urine/Cath 7.0 (5.0-8.5); Protein,Urine/Cath Negative (Negative); Specific Gravity, Urine/Cath 1.010 (1.005-1.030); Urobilinogen,Cath 0.2 EU/dl (0.2)
[2025-05-30 21:03] LABS: Bilirubin,Cath Negative (Negative)
[2025-05-30 21:34] LABS: WBC,Urine/Cath TNTC #/hpf (0-3)
[2025-05-30 21:35] LABS: Bacteria,Urine/Cath 3+ /lpf
--- OUTSIDE RECORDS SUMMARY | 2025-05-31 03:22 | XMS_ITS | Clinical Summary ---
Author Organization Healthcare Address [address] [place] [address] Care Team Providers Care Product Marketing Director Name Role Phone Unavailable Primary Care Provider [...] 2006 UKY-Zoster Vaccines (1 of 2) 2006 RAG-QFXDL-60 Vaccine (1 - 20 24-25 season) 2025 UKY-Influenza Vaccine (#1) 2025 UKY-RSV Vaccine: 60+ [...] complete this topic Insurance [employer] [address] [place] [id number]
--- OUTSIDE RECORDS SUMMARY | 2025-05-31 03:22 | XMS_ITS | Clinical Summary ---
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 [employer] Care Teams Water Plant Maintenance Mechanic Relationship Specialty Start Date End Date Suyapa Gracia APRN PCP - General Internal Medicine 12/05/22
== END 2025-05-30 23:59 | disposition home or self-care (01) ==
LOC: LAB.DROPOF 05-31 03:20
PROVIDERS: PCP Urology; Visit Provider Urology
DX: N39.0 Urinary tract infection, site not specified (principal)
CPT/HCPCS: 81001; 87086; 87088; 87186; 87491; 87529; 87591; 87661; 87798; 87801

== ENCOUNTER 2025-06-02 09:36 | Outpatient (CLI) | payer MEDICARE, SELFPAY ==
--- NOTE | 2025-06-02 10:00 | US_ITS ---
FINAL REPORT TECHNIQUE: Sonographic images of the kidneys and retroperitoneum were obtained in the longitudinal and transverse planes. CLINICAL HISTORY: Uti COMPARISON: None FINDINGS: The right kidney measures 8.9 cm in orzf-vh-bwnu length. No hydronephrosis, mass, or stone. Cortical echogenicity and thickness are normal. The left kidney measures 11.1 cm in dyij-cc-pwgt length. No hydronephrosis, mass, or stone. Cortical echogenicity and thickness are normal. IMPRESSION: Morphologically normal kidneys bilaterally. Reviewed, Interpreted and Dictated by Alina Hernández MD Transcribed by Tania De La Torre Authenticated and [facility]
== END 2025-06-02 23:59 | disposition home or self-care (01) ==
LOC: RAD 09:37
PROVIDERS: PCP Nurse Practitioner Family; Visit Provider Urology
DX: N39.0 Urinary tract infection, site not specified (principal); N32.81 Overactive bladder
CPT/HCPCS: 76770

== ENCOUNTER 2025-06-10 08:10 | Day surgery (SDC) | payer MEDICARE, SELFPAY ==
[2025-06-10 08:41] VITALS: BP 161/69; PULSE 55; RESP 16; TEMP 36.6; O2SAT 98
[2025-06-10 08:47] LABS: POC Glucose,Bedside 100 gm/dL (70-110)
--- NOTE | 2025-06-10 08:47 | HMH.PROCNOTE ---
[facility] Procedure Note Date: 06/10/25 Time: 08:48 Procedure Note:: Chart review: The patient is troubled with recurrent urinary tract infections. I saw her a couple weeks ago and the patient grew Klebsiella on 06/18. She has been on Estrace, oxybutynin, and Proloprim. She is allergic to sulfa drugs. She complains with a urinary tract infection of increased dysuria frequency urgency. Her renal ultrasound 06/18 was normal. Pre-Op diagnosis: Recurrent UTI Postop diagnosis: Recurrent UTI/Urethritis Operative note: The patient was brought to the cystoscopy suite she is prepped and draped in the usual fashion. She underwent catheterization for culture and sensitivity. She underwent flexible cystoscopy. She has moderate urethriitis. The bladder itself is [place] pink in color throughout. The ureteral orifice ease are open bilaterally and normal. There is no evidence of bladder stone tumor hemorrhage or infection. She tolerated the procedure well.
[2025-06-10] MEDS: 0.9 % SODIUM CHLORIDE 500 ML 25 ML IV (08:56)
[2025-06-10 09:00] VITALS: BP 133/82; PULSE 54; RESP 18; TEMP 36.1; O2SAT 97
[2025-06-10 12:55] LABS: Microscopic,Cath URINE MICROSCOPIC (MICROSCOPIC)
[2025-06-10 13:39] LABS: Appearance,Urine/Cath CLEAR (Clear); Bilirubin,Cath Negative (Negative); Blood, Urine/Cath Negative (Negative); Color,Urine/Cath YELLOW (Yellow); Glucose,Urine/Cath (UA) Negative (Negative); Ketones,Urine/Cath Negative (Negative); Leukocyte Esterase,Cath Negative (Negative); Nitrate,Cath Negative (Negative); PH,Urine/Cath 6.0 (5.0-8.5); Protein,Urine/Cath Negative (Negative); Specific Gravity, Urine/Cath 1.025 (1.005-1.030); Urobilinogen,Cath 0.2 EU/dl (0.2)
[2025-06-10 14:16] LABS: RBC,Urine/Cath Occasional # /hpf (0-3); Squamous Epithelial Ur./Cath Occasional #/hpf (0-5); Transitional Epi Cells,Ur/Cath OCC #/lpf (0-3); WBC,Urine/Cath Occasional #/hpf (0-3)
== END 2025-06-10 09:00 | disposition home or self-care (01) ==
PROVIDERS: PCP Nurse Practitioner Family; Visit Provider Urology
PROC: 0TJB8ZZ Inspection of Bladder, Via Natural or Artificial Opening Endoscopic (ICD-10-PCS; CPT 52000; principal; 2025-06-10 09:15)
DX: N39.0 Urinary tract infection, site not specified (principal); N95.2 Postmenopausal atrophic vaginitis; N39.3 Stress incontinence (female) (male); N32.81 Overactive bladder; I10 Essential (primary) hypertension; E11.9 Type 2 diabetes mellitus without complications; Z79.84 Long term (current) use of oral hypoglycemic drugs; Z87.440 Personal history of urinary (tract) infections
CPT/HCPCS: 52000; 81001; 82962; J7040